=== PATIENT | male | born 1980 | race African-American/Black ===

== ENCOUNTER 2024-09-04 15:11 | Emergency (ER) | payer OTHER, SELFPAY ==
[2024-09-04] VITALS (8 sets, daily range): BP systolic 106–139; BP diastolic 54–85; PULSE 87–138; RESP 14–38; TEMP 36.6; O2SAT 94–100
--- NOTE | ~2024-09-04 | XR_ITS ---
EXAMINATION: XR chest 2V Exam Date/Time: 09/04/2024 17:25 CDT HISTORY: cough, sob Comparison: None. RESULT: Lines, tubes, and devices: None. Lungs and pleura: Low volumes with crowding in the lateral view. Mild biapical pleural scarring. Str eaky and linear bibasilar opacities likely representing scar/atelectasis. Cardiomediastinal silhouette: Unremarkable. Other: No acute osseous or upper abdominal finding. IMPRESSION: No acute cardiopulmonary process. Reviewed, dictated and finalized at location K.
--- NOTE | 2024-09-04 15:34 | ECG_ITS ---
Test Date: 2024-09-04 15:41:55 Measurements Intervals [place] Rate: 104 P: 27 AK: 120 QRS: 39 QRSD: 94 T: 12 QT: 342 QTc: 451 Interpretive Statements SINUS TACHYCARDIA NONSPECIFIC T-WAVE ABNORMALITY ABNORMAL RHYTHM ECG No previous ECG available for comparison Electronically Signed On 09-05-2024 15:08:43 CDT by Oswaldo Landers M.D.
--- NOTE | 2024-09-04 16:24 | ED.URI ---
HPI - URI/Sore Throat General Chief Complaint: Upper Respiratory Infection Stated Complaint: cough and cold sx Time Seen by Provider: 09/04/24 16:10 Source: patient Mode of arrival: ambulatory Limitations: no limitations History of Present Illness HPI Narrative: This is a 44 year old male that presents to the ER for cold symptoms. Ongoing over the last week. Reports worsening shortness of breath since yesterday. He has been on a steroid taper and Levaquin with little relief. Reports history of asthma. Reports chest pain, worse with coughing. Related Data Home Medications ?Medication ?Instructions ?Recorded ?Confirmed ?Last Taken ?Type albuterol sulfate 90 mcg/actuation inhalation 09/04/24 09/04/24 History aerosol inhaler mufxqhvkycmicmb-zjwyabkhkeojtlk-RR ml 09/04/24 09/04/24 History 2 mg-30 mg-10 mg/5 mL oral syrup fluconazole 200 mg tablet mg 09/04/24 09/04/24 History levofloxacin 750 mg tablet mg 09/04/24 09/04/24 History naproxen 500 mg tablet mg 09/04/24 Unknown History tezepelumab-ekko 210 mg/1.91 mL mg subcut 09/04/24 Unknown History (110 mg/mL) subcutaneous pen injector (Tezspire) Allergies Allergy/AdvReac Type Severity Reaction Status Date / Time No Known Allergies Allergy Verified 09/04/24 18:13 Review of Systems Review of Systems: CONSTITUTIONAL: Denies fever ENT: Reports rhinorrhea, congestion CARDIOVASCULAR: Reports chest pain RESPIRATORY: Reports cough and dyspnea. All systems reviewed & are unremarkable except as noted in HPI and below PMFSH Past Medical History Medical History (Updated 09/04/24 @ 18:54 by Porsche Crooks PA-C) History of asthma History of hypertension Social History Social History (Updated 09/04/24 @ 16:26 by Porsche Crooks PA-C) Smoking status: Former smoker Exam Narrative: GENERAL: Well-appearing, well-nourished, and in no acute distress. HEAD: Normocephalic, atraumatic. EYES: EOMI. ENT: Nares clear, no rhinorrhea or epistaxis. Mucous membranes moist. Oropharynx without tonsillar hypertrophy exudate or other lesions. NECK: Supple. No adenopathy or masses. CHEST: No respiratory distress. Bronchial lung sounds with coughing. No wheezes rales or rhonchi HEART: Regular rate and rhythm. No murmur heard. Normal peripheral pulses. EXTREMITIES: Normal range of motion. No edema. SKIN: Warm, dry, no rash. NEURO: No focal deficits. Alert and oriented x3. PSYCH: Normal mood and affect Course Course Emergency Course: patient updated on his workup and agrees with plan of care Vital Signs Vital signs: Vital Signs Temperature 98 F 09/04/24 15:21 Pulse Rate 114 H 09/04/24 15:21 Respiratory Rate 20 09/04/24 15:21 Blood Pressure 120/78 09/04/24 15:21 Pulse Oximetry 100 09/04/24 15:21 Oxygen Delivery Room Air 09/04/24 15:21 Temperature 98 F 09/04/24 15:21 Pulse Rate 100 09/04/24 18:50 Respiratory Rate 20 09/04/24 18:50 Blood Pressure 106/61 09/04/24 18:50 Pulse Oximetry 97 09/04/24 18:50 Oxygen Delivery Room Air 09/04/24 16:45 MDM - URI/Sore Throat MDM Narrative Medical decision making narrative: Patient presents the emergency department for cold symptoms ongoing over the last week. He is afebrile and nontoxic appearing. Tachycardic upon arrival, this normalized with IV fluids. Oxygen saturation is normal on room air. Cbc without concerning findings. Metabolic panel with mild elevation in creatinine 1.39. EKG without concerning changes in baseline troponin is negative. D-dimer is not elevated. Patient is COVID positive. Chest x-ray without acute cardiopulmonary abnormality. patient updated on his workup and agrees with plan of care. He is to follow up with PCP. He was given warnings to return to the ER Differential Diagnosis Differential diagnosis: Likely upper respiratory infection, sinusitis, viral infection, bronchitis, influenza and other (covid, pneumonia) Lab Data Attestation: I reviewed the patient's lab results. 09/04/24 16:47 09/04/24 16:47 Labs: Lab Results 09/04/24 Range/Units 16:47 WBC 4.7 (4.5-10.0) K/mm3 RBC 5.38 (4.6-6.20) M/mm3 Hgb 14.7 (14.0-18.0) g/dL Hct 44.5 (42.0-52.0) % MCV 82.7 (80-100) fl MCH 27.3 (26-34) pg MCHC 33.0 (32-36) g/dl RDW 14.6 H (11.5-14.5) % Plt Count 372 (150-375) k/mm3 MPV 8.4 (7.4-10.4) fl Immature Gran % (Auto) 0.2 (0-0.5) % Neut % (Auto) 79.5 H (45.5-73.1) % Lymph % (Auto) 16.5 L (18.3-44.2) % Sunflower % (Auto) 3.4 (2.6-8.5) % Eos % (Auto) 0.2 (0-4.4) % Baso % (Auto) 0.2 (0.2-1.2) % Lymph # (Auto) 0.78 L (0.9-3.2) K/mm3 Sunflower # (Auto) 0.2 (0.1-0.6) K/mm3 Eos # (Auto) 0.0 (0-0.3) K/mm3 Baso # (Auto) 0.0 (0.0-0.1) K/mm3 Abs Immat Gran (auto) 0.01 (0.00-0.031) K/mm3 Absolute Neuts (auto) 3.8 (1.3-6.7) K/mm3 Absolute Nucleated RBC 0.000 (0.0-0.012) K/mm3 Nucleated RBC % 0.0 (0.0-0.2) % PT 13.8 (11.1-14.7) Seconds INR 1.0 APTT 28.6 (22.3-36.8) Seconds D-Dimer < 0.27 (<0.48) ug/mL Sodium 141 (137-145) mmol/L Potassium 3.8 (3.4-5.0) mmol/L Chloride 104 (98-107) mmol/L Carbon Dioxide 22 (22-30) mmol/L Anion Gap 15 H (4-12) mmol/L BUN 16 (9-20) mg/dL Creatinine 1.39 H (0.7-1.3) mg/dL Estim Creat Clear Calc 76 ml/min Estimated GFR 55 L (59 - ) Glucose 134 H (65-110) mg/dL Calcium 9.6 (8.4-10.2) mg/dL Total Bilirubin 0.8 (0.2-1.3) mg/dL AST 47 (17-59) U/L ALT 43 (6-50) U/L Alkaline Phosphatase 59 (38-126) U/L Troponin I < 0.012 (0.000-0.034) ng/mL Total Protein 9.0 H (6.3-8.2) g/dL Albumin 5.0 (3.5-5.1) g/dL Influenza A (RT-PCR) Negative (Negative) Influenza B (RT-PCR) Negative (Negative) RSV (RT-PCR) Negative (Negative) SARS-CoV-2 RNA (RT-PCR) Positive A (Negative) Imaging Data Radiologist's impression: ITS Impressions Chest X-Ray 09/04/24 17:38 IMPRESSION: No acute cardiopulmonary process. ECG Data EKG #1: ECG completion date: 09/04/24 EKG Interpretation: tachycardia, sinus rhythm, no ST changes and normal QT Critical Care Time Critical Care Time Critical Care Time: No Discharge Plan Discharge Clinical Impression: COVID-19 Patient Disposition: Home, Self-Care Condition: Improved Instructions: COVID-19 (Coronavirus Disease 2019) (ED), How to Recover from COVID-19 at Home (ED) Additional Instructions: Return to the emergency department for worsening symptoms, or any other concerns Remain well-hydrated, get plenty of rest. Take Tylenol or Motrin gzkp-bwx-zawvccr for pain as needed. Flonase for nasal congestion. Zyrtec for runny nose. Lozenges or Chloraseptic spray for sore throat. Albuterol 2 puffs every 4-6 hours as needed for shortness of breath or wheezing. Take Prednisone 40mg daily for 4 more days. Stop your taper Follow up with primary care doctor Patient Language: Swedish Prescriptions: New prednisone 20 mg tablet 40 mg PO DAILY 4 Days Qty: 8 0RF Discontinued prednisone 10 mg tablet No Action fluconazole 200 mg tablet levofloxacin 750 mg tablet albuterol sulfate 90 mcg/actuation HFA aerosol inhaler INHALATION vuddufqnajjusic-atwlcnwqn-KT 2-30-10 mg/5 mL syrup naproxen 500 mg tablet Tezspire 210 mg/1.91 mL (110 mg/mL) pen injector SUBCUT Follow-up/Referrals: PHYSICIAN,INSURANCE ADJUSTOR [Non-Staff] - Stand Alone Forms: Work/School Release IP
--- OUTSIDE RECORDS SUMMARY | 2024-09-04 16:31 | XMS_ITS | Clinical Summary ---
Author Organization [facility] Address [address] [place] [address] Care Team Providers Care Reduction Furnace Operator Name Role Phone Jose M Carr DO Primary Care Provider [phone] Allergies No known active allergies Medications losartan-hydroC HLOROthiazide (Hyzaar) 50-12.5 MG tablet Take 1 tablet by mouth 1 (one) time each day. Active albuterol 108 (90 Base) MCG/ACT inhaler Inhale 2 puffs every 6 (six) hours if needed. Active cefdinir (Omnicef) 300 MG capsule Take 300 mg by mouth every 12 (twelve) hours. 4 Active amoxicillin (Amoxil) 500 MG tablet TAKE 1 TABLET BY MOUTH EVERY 12 HOURS FOR 10 DAYS 3 Active fluticasone (Flonase) 50 MCG/ACT nasal spray 3 Active HYDROcodone-bridger taminophen (Nutley) 5-325 MG tablet Take 1 tablet by mouth every 6 (six) hours if needed. 4 Active cefadroxil (Duricef) 500 MG capsule TAKE 1 CAPSULE BY MOUTH TWICE DAILY. START AFTER SURGERY 4 Active methocarbamol (Robaxin) 750 MG tablet TAKE 1 TABLET BY MOUTH TWICE DAILY NEEDED FOR MUSCLE SPASM FOR UP TO 7 DAYS 4 Active amoxicillin-cla vulanate (Augmentin) 875-125 MG tablet Take 1 tablet by mouth every 12 (twelve) hours. FOR 7 DAYS 4 Active naloxone (Narcan) 4 mg/0.1 mL nasal sprayIndication s:Acute pain Administer 1 spray (4 mg total) into affected nostril(s) if needed for opioid reversal or respiratory depression. May repeat every 2-3 minutes if needed, alternating nostrils, until medical assistance becomes available. 1 each 4 11/05/19 25 Active HYDROcodone-bridger taminophen (Nutley) 10-325 MG tablet TAKE 1 TABLET BY MOUTH EVERY 8 HOURS FOR NEEDED 4 Active Active Problems Problem Noted Date Diagnosed Date Tendinitis of left rotator cuff 12/03/2023 Cervical spondylosis 11/05/2023 Supraspinatus tendonitis, left 11/05/2023 Assessment & Plan (11/05/2023 2:14 PM CDT): Romero Casillas DO, Family Medicine PGY 3 resident accompanied me with the consultation of this patient visit. Physical therapy orders for outpatient rehabilitation prescribed (please remember to take the order to a physical therapy location of your choice). If no improvement may consider additional imaging. A home exercise program is encouraged. The following studies were reviewed and discussed during today's visit: Radiographs and MRI. Referral placed for further evaluation Dr Yobani Cuba, Orthopedic surgeon, [place] [place] [facility] Take acetaminophen (Tylenol) every 4-6 hours as needed for relief of pain, discomfort, or fever. Use Over The Counter (OTC) Ibuprofen or Naproxen as needed for pain relief, discomfort, or fever. Do not take more than recommended dosage in a 24 hour period as this can cause severe side effects including kidney damage. Take with food. Voltaren (Diclofenac) 1% OTC (Over the counter). Consider using an over the counter topical medication such as Salonpas/Icy Hot/BioFreeze. Patient verbalized understanding and agrees with plan of care. Infraspinatus tendonitis, left 11/05/2023 Superior labrum anterior-to- posterior (SLAP) tear of left shoulder 11/05/2023 Tear of left supraspinatus tendon 11/05/2023 Assessment & Plan (03/24/2024 9:18 AM CDT): Theresa Mijares MD, Family Medicine PGY 3 resident accompanied me with the consultation of this patient visit. Physical therapy orders for outpatient rehabilitation prescribed (please remember to take the order to a physical therapy location of your choice). If no improvement may consider additional imaging. A home exercise program is encouraged. Referral placed for further evaluation with follow up evaluation with Dr Taylor for narcotic pain medication, he has recently had steroid injection IM, recommend avoid corticosteroid injection today. Consider using an over the counter topical medication such as Salonpas/Icy Hot/BioFreeze. Patient verbalized understanding and agrees with plan of care. Tear of left infraspinatus tendon 11/05/2023 Osteoarthritis of left AC (acromioclavicular) suzanne int 11/05/2023 Arthritis of left shoulder region 11/05/2023 Subacromial bursitis of left shoulder joint 10/20 Acute pain of left shoulder 11/04/2023 Family History Relation Name Status Comments Father Alive Mother Social History Tobacco Use Types Packs/Day Years Used Date Smoking Tobacco: Former Cigarettes Smokeless Tobacco: Never Tobacco Cessation:Counseling Given: Not Answered Alcohol Use Standard Drinks/Week Comments Yes 0 (1 standard drink = 0.6 oz pur e alcohol) Socially Sex and Gender Information Value Date Recorded Sex Assigned at Male 04/25/2024 8:01 AM BUSINESS DIVISION CHAIR Legal Sex Male 9:15 AM BUSINESS DIVISION CHAIR Gender Identity Male 04/25/2024 8:01 AM BUSINESS DIVISION CHAIR Sexual Orientation Not on file Last Filed Vital Signs Vital Sign Reading Time Taken Comments Blood Pressure 128/87 05/23/2024 10:18 AM BUSINESS DIVISION CHAIR Pulse 86 05/23/2024 10:18 AM BUSINESS DIVISION CHAIR Temperature 36.4 C (97.5 F) 05/23/2024 10:18 AM BUSINESS DIVISION CHAIR Respiratory Rate - - Oxygen Saturation 100% 03/28/2024 1:37 PM CDT Inhaled Oxygen Concentration - - Weight 134 kg (295 lb 6.4 oz) 05/23/2024 10:18 A M BUSINESS DIVISION CHAIR Height 170.2 cm (5' 7 ) 03/28/2024 1:37 PM CDT Body Mass Index 46.27 03/28/2024 1:37 PM CDT Plan of Treatment Health Maintenance Due Date Last Done Comments CT Colonography 1979 Colonoscopy 1979 Colorectal Cancer Screening 1980 FIT-DNA 1979 FOBT 1979 Sigmoidoscopy 1979 MMR Vaccines (1 of 1 - Stand trinh series) 01/06/1980 Preventive Visit 1997 Hepatitis A Vaccines (1 of 2 - Risk 2-dose series) 1998 Hepatitis B Vaccines (2 of 3 - 19+ 3-dose series) 12/01/2023 11/03/2023 Influenza Vaccine (#1) 2024 COVID-19 Vaccine (1 - 2023-2 5 season) 2024 Zoster Vaccines (1 of 2) 2029 DTaP,Tdap,and Td Vaccines (2 - Td or Tdap) 11/02/2033 11/03/2023 Pneumococcal Vaccine: Pediat rics (0 to 5 Years) and At-Risk Patients (6 to 49 Years) Completed 11/03/2023 HIB Vaccines Aged Out No longer eligi ble based on patient's age to complete this topic HPV Vaccines Aged Out No longer eligi ble based on patient's age to complete this topic IPV Vaccines Aged Out No longer eligi ble based on patient's age to complete this topic Meningococcal Vaccine Aged Out No mehdi chula eligible based on patient's age to complete this topic Rotavirus Vaccines Aged Out No longer eligible based on patient's age to complete this topic Insurance [employer] EXCHANGE Care Teams Reduction Furnace Operator Relationship Specialty [place] [address] [place] [address] PCP - General 11/04/23
--- OUTSIDE RECORDS SUMMARY | 2024-09-04 16:31 | XMS_ITS | Referral Summary ---
Author Organization [facility] Address [address] [place] [address] Care Team Providers Care Blanket Winder Helper Name Role Phone Jose M Carr DO Primary Care Provider [phone] Allergies No known active allergies Medications losartan-hydroC [...] MCG/ACT nasal spray 3 Active HYDROcodone-bridger taminophen (Nazareth) 5-325 MG tablet Take 1 tablet by [...] each 4 11/05/19 25 Active HYDROcodone-bridger taminophen (Nazareth) 10-325 MG tablet TAKE 1 TABLET BY [...] Dr Yobani Cuba, Orthopedic surgeon, [place], [place] [facility] Take acetaminophen (Tylenol) every 4-6 hours [...] 10/20 Acute pain of left shoulder 11/04/2023 Social History Tobacco Use Types Packs/Day Years Used Date Smoking Tobacco: Former Cigarettes Smokeless Tobacco: Never Tobacco Cessation:Counseling Given: Not Answered Alcohol Use Standard Drinks/Week Comments Yes 0 (1 standard drink = 0.6 oz pur e alcohol) Socially Sex and Gender Information Value Date Recorded Sex Assigned at Male 04/25/2024 8:01 AM TANGIBLE PERSONAL PROPERTY APPRAISER Legal Sex Male 9:15 AM TANGIBLE PERSONAL PROPERTY APPRAISER Gender Identity Male 04/25/2024 8:01 AM TANGIBLE PERSONAL PROPERTY APPRAISER Sexual Orientation Not on file Last Filed Vital Signs Vital Sign Reading Time Taken Comments Blood Pressure 128/87 05/23/2024 10:18 AM TANGIBLE PERSONAL PROPERTY APPRAISER Pulse 86 05/23/2024 10:18 AM TANGIBLE PERSONAL PROPERTY APPRAISER Temperature 36.4 C (97.5 F) 05/23/2024 10:18 AM TANGIBLE PERSONAL PROPERTY APPRAISER Respiratory Rate - - Oxygen Saturation 100% 03/28/2024 1:37 PM CDT Inhaled Oxygen Concentration - - Weight 134 kg (295 lb 6.4 oz) 05/23/2024 10:18 A M TANGIBLE PERSONAL PROPERTY APPRAISER Height 170.2 cm (5' 7 ) 03/28/2024 1:37 PM CDT Body Mass Index 46.27 03/28/2024 1:37 PM CDT Plan of Treatment Not on file Insurance [employer] EXCHANGE Care Teams Blanket Winder Helper Relationship Specialty [place] [address] [place] [address] PCP - General 11/04/23
--- OUTSIDE RECORDS SUMMARY | 2024-09-04 16:31 | XMS_ITS | Encounter Summary ---
Author Organization [facility] Address [address] [place] [address] Care Team Providers Care Glass Cylinder Flanger Name Role Phone Yobani Daniel MD Primary Care Provider [phone] Reason for Visit * Reason Onset Date Comments Advice Only 11/17/2023 pt would like a call states he sneezed and stiches came out. Wants to know if that was normal. pls call TY Encounter Details Date Type Department Care Team (Late st Contact Info) Description 11/17/2023 Telephone [facility] [address] [place] [address] [place] [address] [address] Social History Tobacco Use Types Packs/Day Years Used Date Smoking Tobacco: Former Cigarettes Q uit: 2020 Smokeless Tobacco: Never Alcohol Use Standard Drinks/Week Comments Yes 0 (1 standard drink = 0.6 oz pur e alcohol) social PHQ-2 Answer Date Recorded PHQ-9 Total Score 0 10/21/2023 Hunger Vital Sign Answer Date Recorded Within the past 12 months, y ou worried that your food would run out before you got the money to buy more. Never true 10/20/19 24 Within the past 12 months, t he food you bought just didn't last and you didn't have money to get more. Never true 10/20/2023 Utilities Answer Date Recorded In the past 12 months has e electric, gas, oil, or water company threatened to shut off services in your home? No 10/20/2023 Living Situation Answer Date Recorded What is your living situation today? I have a [facility] [place] place to live 10/20/[address] you li ve. Do you have problems with any of the following? CHOOSE ALL THAT APPLY None of the above 10/20/2023 Personal Safety Answer Date Recorded SDOH Safety Total Score 4 10/20/19 24 Transportation Needs Answer Date Record ed In the past 12 months, has l ack of reliable transportation kept you from medical appointments, meetings, work or from getting things needed for daily living? No 10/20/2023 Sex and Gender Information Value Date Recorded Sex Assigned at Not on file Legal Sex Male 12:14 PM TRANSITION LEAD Gender Identity Not on file Sexual Orientation Not on file documented as of this encounter Miscellaneous Notes * Telephone Encounter - Payton Fang - 11/17/2023 1:34 PM CDT pt would like a call states he sneezed and stiches came out. Wants to know if that was normal. pls call TY documented in this encounter Plan of Treatment Not on file documented as of this encounter Visit Diagnoses Not on filedocumented in this encounter Care Teams Glass Cylinder Flanger Relationship Specialty Start Date End Date Yobani Daniel MD [address] [place] [address] PCP - General 08/19/23 documented as of this encounter
--- OUTSIDE RECORDS SUMMARY | 2024-09-04 16:31 | XMS_ITS ---
Author Organization [facility] Address [address] [place] [address] Care Team Providers Care Beverage Distiller Name Role Phone Jose M Carr Primary Care Provider UnavailAndriy Pennington Unavailable [phone] REASON FOR VISIT Patient seen in clinic for cc of pain in heels. Medications Medication SIG (Take, Route, Frequency, Duration) Notes Start Date End Date Status HYDROcodone-Acetaminophen 10-325 MG 1 tablet as needed Orally every 8 hours for 20 days As needed G90.523 04/28/2024 05/18/2024 Active Naprosyn 500 MG 1 tablet with food o r milk as needed Orally every 12 hrs for 30 days G90.523 08/20/2023 06/27/2024 Active Terbinafine HCl 250 MG 1 tablet Orally O nce a day for 30 days G90.523 08/20/2023 07/27/2024 Active Vital Signs Weight-kg 127.91 kg 04/27/2024 Weight 282 lbs 04/27/2024 Heart Rate 73 /min 04/27/2024 Blood pressure systolic 158 mm Hg 04/27/20 24 Blood pressure diastolic 97 mm Hg 024 Encounters Encounter Location Date Provider Diagnosis [facility] [address] [place] [address] 04/27/2024 Andriy Singh Pain in unspecified lower leg M79.669 ; Type 2 diabetes mellitus with diabetic polyneuropathy E11.42 ; Plantar fascial fibromatosis M72.2 and Tinea unguium B35.1 Assessments Encounter Date Diagnosis (ICD Code) Assessment Notes Treatment Notes Treatment Clinical Notes Section Notes 04/27/2024 Pain in unspecified lower leg (ICD-10 - M79.669) 04/27/2024 Type 2 diabetes mellitus with diabetic polyneuropathy (ICD-10 - E11.42) 04/27/2024 Plantar fascial fibromatosis (ICD-10 - M72.2) 04/27/2024 Tinea unguium (ICD-10 - B35.1) Plan Of Treatment Medication Medication Name Sig Start Date Stop Date Notes HYDROcodone-Acetaminophen 10-325 MG 1 tablet as needed Orally every 8 hours for 20 days 04/28/2024 05/18/2024 G90.523 Naprosyn 500 MG 1 tablet with food o r milk as needed Orally every 12 hrs for 30 days 08/20/2023 06/27/2024 G90.523 Terbinafine HCl 250 MG 1 tablet Orally O nce a day for 30 days 08/20/2023 07/27/2024 G90.523 Next Appt Details Follow Up: 3 Months, Reason: Progress Notes * Andriy COLLADO EDOB:1980 (44 yo M)Acc No.[id number]:04/27/2024 Progress Notes Patient: Andriy DAWSON Provider: Ramirez Singh DPM :1980 A ge:44 Y S ex:Male Date:04/27/2024 Address:[facility] [address], [place] [address] Pcp:Jose M Carr Subjective: * Chief Complaints: * P atient seen in clinic for cc of pain in heels. * HPI: P lantar fasciitis: Plantar fasciitis was diagnosed w eeks ago when patient presented with heel pain on the left foot / heel on the right foot / heel . Severity of the symptoms is s evere considered 9 out of 10 . Symptoms are present on the p roximal heel proximal plantar aspect of foot . * Medical History: * Surgical History: * Hospitalization/Major Diagno stic Procedure: * Medications: T akingHYDROcodone-Acetaminophen 10-325 MG Tablet 1 tablet as needed Orally every 8 hours As needed, stop date 05/16/2024, Notes to Pharmacist: g90.523Naprosyn 500 MG Tablet 1 tablet with food or milk as needed Orally every 12 hrs , stop date 06/25/2024, Notes to Pharmacist: g90.523Terbinafine HCl 250 MG Tablet 1 tablet Orally Once a day , stop date 07/25/2024, Notes to Pharmacist: g90.523Taking HYDROcodone-Acetaminophen 10-325 MG Tablet 1 tablet as needed Orally every 8 hours As needed, stop date 05/16/2024, Notes to Pharmacist: g90.523Taking Naprosyn 500 MG Tablet 1 tablet with food or milk as needed Orally every 12 hrs , stop date 06/25/2024, Notes to Pharmacist: g90.523Taking Terbinafine HCl 250 MG Tablet 1 tablet Orally Once a day , stop date 07/25/2024, Notes to Pharmacist: g90.523 Objective: * Vitals: B P:158/97mm Hg, HR:73/min, Wt:282lbs, Wt-k.91 kg. Assessment: * Assessment: 1. P ain in unspecified lower leg - M79.669 2 . T ype 2 diabetes mellitus with diabetic polyneuropathy - E11.42 3 . P lantar fascial fibromatosis - M72.2? 4. T inea unguium - B35.1 Plan: * Treatment: * Procedure Codes: * Follow Up: 3 Months * Billing Information: * Visit Code: 62724 Office Visit, Est Pt., Level 2. * Procedure Codes: * SIE Sign off status: Completed true * Provider: Ramirez Singh DPM Date: 06/27/2023 Generated for Aileeni elizabeth/Vicki/eTransmitting on: 0 09/04/2024 04:31 PM CDT History and Physical Notes * HPI (History of Present Illness) Category Sub-Category Detail Notes Category Not es Plantar fasciitis Plantar fasciitis wa s diagnosed weeks ago when patient presented with heel pain on the left foot / heel on the right foot / heel Severity of the symptoms is severe consi dered 9 out of 10 Symptoms are present on the proximal antonette l proximal plantar aspect of foot
--- OUTSIDE RECORDS SUMMARY | 2024-09-04 16:32 | XMS_ITS | Clinical Summary ---
Author Organization [facility] Address [address] [place] [address] Care Team Providers Care Plant And Maintenance Technician Name Role Phone Yobani Daniel MD Primary Care Provider [phone] Allergies No known active allergies Medications budesonide-form oteroL (SYMBICORT) 160-4.5 mcg/actuation inhaler Inhale 2 puffs 2 (two) times a day. Active albuterol 90 mcg/actuation inhaler Inhale 2 puffs every 6 (six) hours as needed for wheezing. Active losartan-hydroc hlorothiazide (HYZAAR) 50-12.5 mg per tablet Take 1 tablet by mouth daily. Active ipratropium-alb uteroL (DUO-NEB) 0.5-2.5 mg/3 mL nebulizer USE 1 AMPULE IN NEBULIZER EVERY 6 HOURS NEEDED FOR WHEEZING 4 Active HYDROcodone-bridger taminophen (NORCO) 5-325 mg per tabletIndicatio ns:acute pain Take 1 tablet by mouth every 6 (six) hours as needed for moderate pain .acute pain. Start after surgery Max Daily Amount: 4 tablets 12 tablet 4 Active cefuroxime (CEFTIN) 500 MG tablet Take 1 tablet (500 mg total) by mouth 2 (two) times a day. Prescription already sent by ENT 4 Active Active Problems Problem Noted Date Diagnosed Date Chronic pansinusitis 09/10/2023 Nasal septal deviation 09/10/2023 Hypertrophy of inferior nasal turbinate 09/10/19 24 Nasal polyps 09/10/2023 Family History Medical History Relation Name Comments Diabetes Mother Hypertension Mother Relation Name Status Comments Mother Social History Tobacco Use Types Packs/Day Years Used Date Smoking Tobacco: Former Cigarettes Q uit: 2020 Smokeless Tobacco: Never Tobacco Cessation:Counseling Given: Not [...] Recorded In the past 12 months has th e electric, gas, oil, or water company threatened to shut off services in your home? No 10/20/2023 Living Situation Answer Date Recorded What is your living situation today? I [facility] place to live 10/20/[address] you li ve. Do you have problems with any of the following? CHOOSE ALL THAT APPLY None of the above 10/20/2023 Personal Safety Answer Date Recorded SDOH Safety Total Score 4 10/20/19 Transportation Needs Answer Date Record ed In the past 12 months, has l ack of reliable transportation kept you from medical appointments, meetings, work or from getting things needed for daily living? No 10/20/2023 Sex and Gender Information Value Date Recorded Sex Assigned at Not on file Legal Sex Male 12:14 PM GUEST SERVICES COORDINATOR Gender Identity Not on file Sexual Orientation Not on file Last Filed Vital Signs Vital Sign Reading Time Taken Comments Blood Pressure 136/89 04/25/2024 1:32 PM GUEST SERVICES COORDINATOR Pulse 72 04/25/2024 1:32 PM GUEST SERVICES COORDINATOR Temperature 36.4 C (97.5 F) 10/21/2023 3:49 PM CDT Respiratory Rate 22 10/21/2023 4:59 PM CDT Oxygen Saturation 94% 10/21/2023 3:49 PM CDT Inhaled Oxygen Concentration - - Weight 130 kg (286 lb) 04/25/2024 1:32 PM GUEST SERVICES COORDINATOR Height 170.2 cm (5' 7 ) 04/25/2024 1:32 PM GUEST SERVICES COORDINATOR Body Mass Index 44.79 04/25/2024 1:32 PM GUEST SERVICES COORDINATOR Plan of Treatment Health Maintenance Due Date Last Done Comments FLEXIBLE SIGMOIDOSCOPY 1980 FOBT 1980 STOOL DNA (COLOGUARD) 1979 HEPATITIS C SCREENING 1997 Pneumococcal Vaccine: Pediat rics (0 to 5 Years) and At-Risk Patients (6 to 49 Years) (1 of 2 - PCV) 1998 COLONOSCOPY SCREENING 01/06/2024 COLORECTAL CANCER SCREENING 01/06/2024 COVID-19 VACCINE (1 - 2023-2 5 season) 2024 INFLUENZA VACCINE (#1) 2024 MENINGOCOCCAL B SERIES VACCINE Aged Out No longer eligible based on patient's age to complete this topic Medical Devices Implanted Type Area Asset Protection Lead Device Identifier Shelf Expiration Date Model / Serial / Lot Implant Sinus Propel Mini 16x43.5x4.0mm Mometasone Furoate - [id number] Implanted:Qty : 1 on 10/20/2023 by Lima Cardoza MD at [facility] Otolaryngology Implants or Sets Left: Nose INTERSECT ENT 01/22/2024 [id number] / / [id number] Implant Sinus Propel Mini 16x43.5x4.0mm Mometasone Furoate - [id number] Implanted:Qty : 1 on 10/20/2023 by Lima Cardoza MD at [facility] Otolaryngology Implants or Sets Right: Nose INTERSECT ENT 01/22/2024 [id number] / / [id number] Implant Sinus Propel Contour 8x15.5x2.8mm Mometasone Furoate - [id number] Implanted:Qty : 1 on 10/20/2023 by Lima Cardoza MD at [facility] Surgical Implants; Expanders; Extenders; Surgical Wires Left: Nose INTERSECT ENT 10/09/2024 [id number] / / [id number] Implant Sinus Propel Contour 8x15.5x2.8mm Mometasone Furoate - [id number] Implanted:Qty : 1 on 10/20/2023 by Lima Cardoza MD at [facility] Surgical Implants; Expanders; Extenders; Surgical Wires Right: Nose INTERSECT ENT 09/18/2024 [id number] / / [id number] Insurance [facility] EXCHANGE [employer] NETWORK - OON Advance Directives For more information, please contact: [phone] * Full Code (Latest Code Status on File) Date Activated Date Inactivated Comments 10/20/2023 12:37 PM 10/21/2023 10:09 PM Question Answer Comments Code Status decision reached by: Patient Care Teams Plant And Maintenance Technician Relationship Specialty Start Date End Date Yobani Daniel MD [address] [place] [address] PCP - General 08/19/23
--- OUTSIDE RECORDS SUMMARY | 2024-09-04 16:32 | XMS_ITS | Clinical Summary ---
Author Organization [facility] Address [address] [place] [address] Care Team Providers Care Director Supply Name Role Phone Unavailable Primary Care Provider Unavailabl e Source Comments PLEASE NOTE, if this patient is a minor, it may be UNLAWFUL to discuss sensitive information that is contained in these records (such as FAMILY PLANNING, MENTAL HEALTH or SUBSTANCE ABUSE) with the minor patient's parent or other person without the patient's specific authorization.[facility] Allergies No known active allergies Medications condomsIndicati ons:Counseling on health promotion and disease prevention STD prevention 12 Each 0 4 Active Social History Tobacco Use Types Packs/Day Years Used Date Smoking Tobacco: Every Day Cigarettes Smokeless Tobacco: Never Sex and Gender Information Value Date Recorded Sex Assigned at Not on file Legal Sex Male 7:14 AM PDT Gender Identity Not on file Sexual Orientation Not on file Plan of Treatment Not on file
--- OUTSIDE RECORDS SUMMARY | 2024-09-04 16:32 | XMS_ITS | Patient Health Record ---
Author Organization [facility] Address [address] [place] [address] Care Team Providers Care Program Review Director Name Role Phone Carr Jose M Primary Care Provider UnavailAndriy Pennington Unavailable [phone] Reason For Referral No Information Medications Medication SIG (Take, Route, Fr equency, Duration) Notes Start Date End Date Status Naprosyn 500 MG 1 tablet with food o r milk as needed Orally every 12 hrs for 30 days E11.42 08/20/2023 09/25/2024 Active Problems Problem Type SNOMED Code ICD Code Onset Dates Problem Status W/U Status Risk Notes Problem Tinea unguium (552835196) Tinea unguium (B35.1) Active confirmed Problem Polyneuropathy due to type 2 diabetes mellitus (090556669) Type 2 diabetes mellitus with diabetic polyneuropathy (E11.42) Active confirmed Problem Hammer toe (838070176) Other hammer toe(s) (acquired), unspecified foot (M20.40) Active confirmed Problem Plantar fascial fibromatosis (20226785) Plantar fascial fibromatosis (M72.2) Active confirmed Problem Calcaneal spur (22595351) Calcaneal spur, unspecified foot (M77.30) Active confirmed Problem Pain in limb (67259789) Pain in unspecified lower leg (M79.669) Active confirmed Problem Abnormal gait (52858671) Other abnormalities of gait and mobility (R26.89) Active confirmed Vital Signs Heart Rate 108 /min 07/26/2024 Blood pressure diastolic 97 mm Hg 07/26/2024 Weight-kg 135.63 kg 07/26/2024 Blood pressure systolic 161 mm Hg 07/26/2024 Weight 299 lbs 07/26/2024 Encounters Encounter Location Date Provider Diagnosis [facility] [address] [place] [address] 01/22/2024 Andriy Singh [facility] [address] [place] [address] 01/25/2024 Andriy Singh Pain in unspecified lower leg M79.669 [facility] [address] [place] [address] 01/26/2024 Andriy Singh Pain in unspecified lower leg M79.669 [facility] [address] [place] [address] 01/27/2024 Andriy Singh Pain in unspecified lower leg M79.669 [facility] [address] [place] [address] 01/29/2024 Andriy Singh Pain in unspecified lower leg M79.669 [facility] [address] [place] [address] 04/26/2024 Andriy Singh Pain in unspecified lower leg M79.669 [facility] [address] [place] [address] 07/27/2024 Andriy Singh Pain in unspecified lower leg M79.669 [facility] [address] [place] [address] 01/20/2024 Andriy Singh Type 2 diabetes theron itus with diabetic polyneuropathy E11.42 ; Tinea unguium B35.1 ; Other hammer toe(s) (acquired), unspecified foot M20.40 and Pain in unspecified lower leg M79.669 [facility] [address] [place] [address] 04/27/2024 Andriy Singh Pain in unspecified lower leg M79.669 ; Type 2 diabetes mellitus with diabetic polyneuropathy E11.42 ; Plantar fascial fibromatosis M72.2 and Tinea unguium B35.1 [facility] [address] [place] [address] 07/26/2024 Andriy Singh Pain in unspecified lower leg M79.669 ; Tinea unguium B35.1 ; Type 2 diabetes mellitus with diabetic polyneuropathy E11.42 and Other hammer toe(s) (acquired), unspecified foot M20.40 Assessments Encounter Date Diagnosis (ICD Code) Assessment Notes Treatment Notes Treatment Clinical Notes Section Notes 01/20/2024 Tinea unguium (ICD-10 - B35.1) debridement of nails on feet 01/20/2024 Type 2 diabetes mellitus with diabetic polyneuropathy (ICD-10 - E11.42) 01/25/2024 Pain in unspecified lower leg (ICD-10 - M79.669) 01/26/2024 Pain in unspecified lower leg (ICD-10 - M79.669) 01/27/2024 Pain in unspecified lower leg (ICD-10 - M79.669) 01/29/2024 Pain in unspecified lower leg (ICD-10 - M79.669) 04/26/2024 Pain in unspecified lower leg (ICD-10 - M79.669) 04/27/2024 Pain in unspecified lower leg (ICD-10 - M79.669) 07/26/2024 Tinea unguium (ICD-10 - B35.1) debridement of nails on feet 07/26/2024 Pain in unspecified lower leg (ICD-10 - M79.669) 07/27/2024 Pain in unspecified lower leg (ICD-10 - M79.669) 04/27/2024 Type 2 diabetes mellitus with diabetic polyneuropathy (ICD-10 - E11.42) 07/26/2024 Type 2 diabetes mellitus with diabetic polyneuropathy (ICD-10 - E11.42) 01/20/2024 Other hammer toe(s) (acquired), unspecified foot (ICD-10 - M20.40) 01/20/2024 Pain in unspecified lower leg (ICD-10 - M79.669) 07/26/2024 Other hammer toe(s) (acquired), unspecified foot (ICD-10 - M20.40) 04/27/2024 Plantar fascial fibromatosis (ICD-10 - M72.2) 04/27/2024 Tinea unguium (ICD-10 - B35.1) Plan Of Treatment No Information Insurance Providers Payer Name Payer Address Payer Phone Subscriber Number Group Number Insured Name Patient Relationship to Insured Coverage Start Date Coverage End Date [facility] access hospitalO - Active [address] [facility] [place] [id number] Andriy Barajas Self - patient is the insured
--- OUTSIDE RECORDS SUMMARY | 2024-09-04 16:32 | XMS_ITS ---
Author Organization [facility] Address [address] [place] [address] Care Team Providers Care Cupola Operator Name Role Phone Jose M Carr Primary Care Provider UnavailAndriy Pennington Unavailable [phone] Medications Medication SIG (Take, Route, Frequency, Duration) Notes Start Date End Date Status Terbinafine HCl 250 MG 1 tablet Orally O nce a day for 30 days G90.523 08/20/2023 07/27/2024 Active HYDROcodone-Acetaminophen 10-325 MG 1 tablet as needed Orally every 8 hours for 20 days As needed E11.42 07/27/2024 08/16/2024 Active Naprosyn 500 MG 1 tablet with food o r milk as needed Orally every 12 hrs for 30 days E11.42 08/20/2023 09/25/2024 Active Encounters Encounter Location Date Provider Diagnosis [facility] [address] [place] [address] 07/27/2024 Andriy Singh Pain in unspecified lower leg M79.669 Assessments Encounter Date Diagnosis (ICD Code) Assessment Notes Treatment Notes Treatment Clinical Notes Section Notes 07/27/2024 Pain in unspecified lower leg (ICD-10 - M79.669) Plan Of Treatment Medication Medication Name Sig Start Date Stop Date Notes HYDROcodone-Acetaminophen 10-325 MG 1 tablet as needed Orally every 8 hours for 20 days 07/27/2024 08/16/2024 E11.42 Naprosyn 500 MG 1 tablet with food o r milk as needed Orally every 12 hrs for 30 days 08/20/2023 09/25/2024 E11.42 Progress Notes * Andriy BARAJAS EDOB:1980 (44 yo M)Acc No.[id number]:07/27/2024 Patient: Andriy DAWSON Provider: Ramirez Singh DPM :1980 A ge:44 Y S ex:Male Date:07/27/2024 Address:[address], [facility] Pcp:Jose M Carr Subjective: * Chief Complaints: * * Medical History: * Medications: T aking Terbinafine HCl 250 MG Tablet 1 tablet Orally Once a day , stop date 07/27/2024, Notes to Pharmacist: G90.523, Taking HYDROcodone-Acetaminophen 10- 325 MG Tablet 1 tablet as needed Orally every 8 hours As needed, stop date 08/15/2024, Notes to Pharmacist: E11.42, Taking Naprosyn 500 MG Tablet 1 tablet with food or milk as needed Orally every 12 hrs , stop date 09/24/2024, Notes to Pharmacist: E11.42 Objective: * Vitals: Assessment: * Assessment: 1. P ain in unspecified lower leg - M79.669 Plan: * Treatment: * Billing Information: * Visit Code: * Procedure Codes: * Electronic signature of Andriy Singh DPM on 09/04/2024 at 04:31 PM CDT Sign off status: Pending * Provider: Ramirez Singh DPM Date: 0 07/27/2024 Generated for Ayanna johnson/Vicki/Wilfredo on: 0 09/04/2024 04:31 PM CDT
--- OUTSIDE RECORDS SUMMARY | 2024-09-04 16:32 | XMS_ITS ---
Author Organization [facility] Address [address] [place] [address] Care Team Providers Care New Car Driver Name Role Phone Jose M Carr Primary Care Provider Andriy Worrell Unavailable [phone] REASON FOR VISIT 3 month f/u, diabetic patient seen in clinic for cc of painful toenails on feet. Medications Medication SIG (Take, Route, Frequency, Duration) Notes Start Date End Date Status Terbinafine HCl 250 MG 1 tablet Orally O nce a day for 30 days G90.523 08/20/2023 07/27/2024 Active HYDROcodone-Acetaminophen 10-325 MG 1 tablet as needed Orally every 8 hours for 20 days As needed E11.42 04/28/2024 08/15/2024 Active Naprosyn 500 MG 1 tablet with food o r milk as needed Orally every 12 hrs for 30 days E11.42 08/20/2023 09/24/2024 Active Vital Signs Blood pressure systolic 161 mm Hg 07/26/19 25 Blood pressure diastolic 97 mm Hg 025 Heart Rate 108 /min 07/26/2024 Weight 299 lbs 07/26/2024 Weight-kg 135.63 kg 07/26/2024 Encounters Encounter Location Date Provider Diagnosis [facility] [address] [place] [address] 07/26/2024 Andriy Singh Pain in unspecified lower leg M79.669 ; Tinea unguium B35.1 ; Type 2 diabetes mellitus with diabetic polyneuropathy E11.42 and Other hammer toe(s) (acquired), unspecified foot M20.40 Assessments Encounter Date Diagnosis (ICD Code) Assessment Notes Treatment Notes Treatment Clinical Notes Section Notes 07/26/2024 Pain in unspecified lower leg (ICD-10 - M79.669) 07/26/2024 Tinea unguium (ICD-10 - B35.1) debridement of nails on feet 07/26/2024 Type 2 diabetes mellitus with diabetic polyneuropathy (ICD-10 - E11.42) 07/26/2024 Other hammer toe(s) (acquired), unspecified foot (ICD-10 - M20.40) Plan Of Treatment Medication Medication Name Sig Start Date Stop Date Notes HYDROcodone-Acetaminophen 10-325 MG 1 tablet as needed Orally every 8 hours for 20 days 04/28/2024 08/15/2024 E11.42 Naprosyn 500 MG 1 tablet with food o r milk as needed Orally every 12 hrs for 30 days 08/20/2023 09/24/2024 E11.42 Treatment Notes Assessment Notes Tinea unguium debridement of nails on feet Next Appt Details Follow Up: 3 Months, Reason: Progress Notes * Andriy COLLADO EDOB:1980 (44 yo M)Acc No.[id number]:07/26/2024 Progress Notes Patient: Andriy DAWSON Provider: Ramirez Singh DPM :1980 A ge:44 Y S ex:Male Date:07/26/2024 Address:[facility] [address], [place] [id number] Pcp:Jose M Carr Subjective: * Chief Complaints: * 3 month f/uDiabetic patient seen in clinic for cc of painful toenails on feet. * HPI: O nychomycosis: The onychomycosis has been present for w eeks years . The onychomycosis is located on b oth _1-10___ toenail(s) both . Symptoms include n ail discoloration nail discoloration nail thickening . It is associated with d iabetes tinea pedis diabetes tinea pedis . It is treated with t erbinafine . Response to treatment has been f air fair . P eripheral neuropathy: The peripheral neuropathy has been present f or years and began insidiously . The neuropathy is located in t he legs the feet the toes a stocking-glove distribution . Symptoms include a burning sensation numbness pain tingling and muscle weakness . It is worsened with d iabetes . It is treated with n arcotic pain relievers nonsteroidal anti-inflammatory drugs (NSAIDs) gabapentin . Overall condition i s worsening . * Medical History: * Surgical History: * Hospitalization/Major Diagno stic Procedure: * Medications: T akingTerbinafine HCl 250 MG Tablet 1 tablet Orally Once a day , stop date 07/27/2024, Notes to Pharmacist: G90.523Taking Terbinafine HCl 250 MG Tablet 1 tablet Orally Once a day , stop date 07/27/2024, Notes to Pharmacist: G90.523 Objective: * Vitals: B P:161/97mm Hg, HR:108/min, Wt:299lbs, Wt-k.63 kg. * Examination: V ascular: Dorsalis pedis pulse: b ilaterall 1/4 . Posterior tibial pulse: b ilaterally . Capillary refill: b ilaterally less than 3 seconds . Temperature gradient: b ilaterally warm to warm . Edema: b ilateral leg ankle foot non-pitting localized .? Inspection: b ilateral leg ankle foot with telangiectasia with varicosities . Assessment: * Assessment: 1. T inea unguium - B35.1 (Primary) 2 . P ain in unspecified lower leg - M79.669 3 . T ype 2 diabetes mellitus with diabetic polyneuropathy - E11.42 ? 4 . O ther hammer toe(s) (acquired), unspecified foot - M20.40 Plan: * Treatment: 2. P ain in unspecified lower leg Refill HYDROcodone-Acetaminophen Tablet, 10-325 MG, 1 tablet as needed, Orally, every 8 hours As needed, 20 days, 60 Tablet, Refills 0, Notes to Pharmacist: E11.42; R efill Naprosyn Tablet, 500 MG, 1 tablet with food or milk as needed, Orally, every 12 hrs, 30 days, 60 Tablet, Refills 1, Notes to Pharmacist: E11.42. * Procedure Codes: 1 1721 DEBRIDE NAIL, 6 OR MORE * Follow Up: 3 Months * Billing Information: * Visit Code: 42209 Office Visit, Est Pt., Level 3. * Procedure Codes: 17687 DEBRIDE NAIL, 6 OR MORE. * EPOINT DESIGNER DEVELOPER Sign off status: Completed true * Provider: Ramirez Singh DPM Date: 0 07/26/2024 Generated for Ayanna johnson/Vicki/Wilfredo on: 0 09/04/2024 04:31 PM CDT History and Physical Notes * HPI (History of Present Illness) Category Sub-Category Detail Notes Category Not es Onychomycosis The onychomycosis has been present for w eeks years The onychomycosis is located on both _1- 10___ toenail(s) both Symptoms include nail discoloration n ail discoloration nail thickening It is associated with diabetes tinea ped is diabetes tinea pedis It is treated with terbinafine Response to treatment has been fair fair Peripheral neuropathy The peripheral ochoa ropathy has been present for years and began insidiously The neuropathy is located in the legs th e feet the toes a stocking-glove distribution Symptoms include a burning sensation numbness pain tingling and muscle weakness It is worsened with diabetes It is treated with narcotic pain reliev ers nonsteroidal anti-inflammatory drugs (NSAIDs) gabapentin Overall condition is worsening Examination Category Sub-Category Detail Notes Category Not es Vascular Dorsalis pedis pulse: bilaterall 1/4 Edema: bilateral leg ankle foot non-pitting localized Capillary refill: bilaterally less gustabo n 3 seconds Temperature gradient: bilaterally warm t o warm Posterior tibial pulse: bilaterally Inspection: bilateral leg ankle foot with telangiectasia with varicosities
[2024-09-04] MEDS: IPRATROPIUM 0.5 MG/ALBUTEROL SULFATE 2.5 MG AMPUL.NEB 3 ML INHALATION (16:34)
[2024-09-04] MEDS: ACETAMINOPHEN 500 MG TABLET 1000 MG PO (16:43)
[2024-09-04] MEDS: methylPREDNISolone SOD SUCC 125 MG VIAL IV PUSH (16:44)
[2024-09-04] MEDS: SODIUM CHLORIDE 0.9% IV 500 ML 999 ML IV CONT (16:44)
[2024-09-04 16:54] LABS: Basophils Percent Auto 0.2 % (0.2-1.2); Eosinophils Percent Auto 0.2 % (0-4.4); Hematocrit 44.5 % (42.0-52.0); Hemoglobin 14.7 g/dL (14.0-18.0); Immature Granulocyte Absolute 0.01 K/mm3 (0.00-0.031); Immature Granulocyte Percent A 0.2 % (0-0.5); Lymphocytes Absolute Auto 0.78 K/mm3 (0.9-3.2); Lymphocytes Percent Auto 16.5 % (18.3-44.2); Mean Corpuscular Hemoglobin 27.3 pg (26-34); Mean Corpuscular Volume 82.7 fl (80-100); Mean Platelet Volume 8.4 fl (7.4-10.4); Monocytes Absolute Auto 0.2 K/mm3 (0.1-0.6); Monocytes Percent Auto 3.4 % (2.6-8.5); Neutrophils Absolute Auto 3.8 K/mm3 (1.3-6.7); Neutrophils Percent Auto 79.5 % (45.5-73.1); Platelet Count Result 372 k/mm3 (150-375); Red Blood Count 5.38 M/mm3 (4.6-6.20); Red Cell Distribution Width 14.6 % (11.5-14.5); White Blood Count 4.7 K/mm3 (4.5-10.0)
[2024-09-04 17:03] LABS: Alanine Aminotransferase 43 U/L (6-50); Alkaline Phosphatase 59 U/L (38-126); Anion Gap 15 mmol/L (4-12); Aspartate Amino Transferase 47 U/L (17-59); Bilirubin,Total 0.8 mg/dL (0.2-1.3); Blood Urea Nitrogen 16 mg/dL (9-20); Calcium 9.6 mg/dL (8.4-10.2); Carbon Dioxide 22 mmol/L (22-30); Chloride 104 mmol/L (98-107); Estimated CRCL calculation 76 ml/min; Estimated Glomerular Filt Rate 55; Glucose 134 mg/dL (65-110); Potassium 3.8 mmol/L (3.4-5.0); Sodium 141 mmol/L (137-145)
[2024-09-04 17:11] LABS: Prothrombin Time 13.8 Seconds (11.1-14.7)
[2024-09-04 17:12] LABS: Partial Thromboplastin Time 28.6 Seconds (22.3-36.8)
[2024-09-04 17:14] LABS: Troponin I < 0.012 ng/mL (0.000-0.034)
[2024-09-04 17:27] LABS: D Dimer < 0.27 ug/mL (<0.48)
[2024-09-04 17:32] LABS: Influenza A QL RT-PCR Negative (Negative); Influenza B QL RT-PCR Negative (Negative); RSV RNA, RT-PCR Negative (Negative); SARS-CoV-2 RNA PCR Positive (Negative)
== END 2024-09-04 19:13 | disposition home or self-care (01) ==
PROVIDERS: Emergency Provider Physician Assistant
DX: U07.1 COVID-19 (principal); I10 Essential (primary) hypertension; J45.909 Unspecified asthma, uncomplicated; Z87.891 Personal history of nicotine dependence
CPT/HCPCS: 36415; 71046; 80053; 84484; 85025; 85380; 85610; 85730; 87637; 93005; 94640; 96361; 96374; 99284; A9270; J2919; J7040

== ENCOUNTER 2024-09-09 16:49 | Emergency (ER) | payer OTHER, SELFPAY ==
--- NOTE | ~2024-09-09 | CT_ITS ---
EXAMINATION: CTA chest PE protocol DATE: 09/09/2024 21:23 CDT INDICATION: Shortness of breath and chest pain TECHNIQUE: Computed tomographic angiography (CTA) of the chest was performed with 100 mL Omnipaque-35 0 intravenous contrast. The dose-length product was 1056.94 mGy-cm. Maximum intensity projection 3D-r econstructions of the aorta and other arteries were constructed by the technologist on a separate wor kstation. COMPARISON: None. FINDINGS/OBSERVATIONS: PULMONARY ARTERIES: No filling defect is identified within the main or proximal pulmonary artery. The main pulmonary artery is not enlarged. THORACIC AORTA: No aneurysmal dilatation or dissection is present. The great vessels are intact LUNGS: Panlobular emphysematous disease is identified. Right basilar peribronchial thickening with mucous plugging. Subpleural cyst formation is detected bi laterally. Cylindrical bronchiectasis is noted bilaterally. MEDIASTINUM: No morphologically suspicious or pathologically enlarged lymph nodes are identified with in the mediastinum or bilateral axilla. BONES OF THE CHEST: No acute fracture. No significant degenerative disease. No lytic or blastic lesions. HEART: The heart is of normal size, without pericardial effusion. IMPRESSION: No pulmonary embolus. No thoracic aortic dissection. Panlobular emphysematous disease with right basilar peribronchial thickening and mucous plugging. Cyl indrical bronchiectasis is also noted. Reviewed, dictated and finalized at location A. IMPRESSION: No pulmonary embolus. No thoracic aortic dissection. Panlobular emphysematous disease with right basilar peribronchial thickening an d mucous plugging. Cylindrical bronchiectasis is also noted.
--- NOTE | ~2024-09-09 | XR_ITS ---
CHEST RADIOGRAPH CLINICAL HISTORY: dyspnea, chest pain . COMPARISON: 09/04/2024 TECHNIQUE: Single portable view of the chest. FINDINGS The cardiomediastinal silhouette is unremarkable. Significant peribronchial thickening, an interval change from previous examination. The lungs are otherwise clear. IMPRESSION: Significant peribronchial thickening, without focal infiltrate or effusion. Reviewed, dictated and finalized at location A.
--- OUTSIDE RECORDS SUMMARY | 2024-09-09 16:52 | XMS_ITS | Encounter Summary ---
Author Organization [facility] Address [address] [facility] [place] [address] Care Team Providers Care Political Worker Name Role Phone Jovanni Knapp MD Primary Care Provider Jose M Carr DO Primary Care Provider + Jovanni Pearson MD Primary Care Provider Niko Barone MD Primary Care Provider Encounter Details Date Type Department Care Team (Late st Contact Info) Description 10/29/2022 Legacy Scanned Document Encounter [facility] - Conversion [address] [place] [address] Social History Tobacco Use Types Packs/Day Years Used Date Smoking Tobacco: Never Assessed Sex and Gender Information Value Date Recorded Sex Assigned at Male 11/26/2023 2:38 PM CDT Legal Sex Male 7:25 AM CDT Gender Identity Male 09/12/2023 7:25 AM CDT Sexual Orientation Not on file documented as of this encounter Plan of Treatment Not on file documented as of this encounter Visit Diagnoses Not on filedocumented in this encounter Care Teams Political Worker Relationship Specialty [place] [address] [facility] [address] [place] [address] PCP - General 07/18/22 11/25/23 [place] [address] [place] [address] PCP - General 11/26/23 12/20/23 [place] [address] [place] [address] PCP - General 12/21/23 04/28/24 [place] [address] [place] [address] PCP - General Family Medicine 04/29/24 documented as of this encounter
--- OUTSIDE RECORDS SUMMARY | 2024-09-09 16:52 | XMS_ITS | Encounter Summary ---
Author Organization [facility] Address [address] [place] [address] Care Team Providers Care Supervisor Film Processing Name Role Phone Jovanni Knapp MD Primary Care Provider Jose M Carr DO Primary Care Provider + Jovanni Pearson MD Primary Care Provider [phone] Niko Barone MD Primary Care Provider Encounter Details Date Type Department Care Team (Late st Contact Info) Description 10/29/2022 Legacy Scanned Document Encounter [facility] - Conversion [address] [place] [address] Social History Tobacco Use Types [...] on filedocumented in this encounter Care Teams Supervisor Film Processing Relationship Specialty Start [place] [address] [facility] [address] [place] [address] PCP - General 07/18/22 11/25/23 [place] [address] [place] [address] PCP - General 11/26/23 12/20/23 [place] [address] [place] [address] PCP - General 12/21/23 04/28/24 [place] [address] [place] [address] PCP - General Family Medicine 04/29/24 documented as of this encounter
--- OUTSIDE RECORDS SUMMARY | 2024-09-09 16:53 | XMS_ITS | Encounter Summary ---
Author Organization [facility] Address [address] [facility] [place] [address] Care Team Providers Care Licensed Home Inspector Name Role Phone Yobani Daniel MD Primary Care Provider [phone] Reason for Visit * Reason Onset Date Comments Advice Only 11/17/2023 pt would like a call states he sneezed and stiches came out. Wants to know if that was normal. 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
--- OUTSIDE RECORDS SUMMARY | 2024-09-09 16:53 | XMS_ITS | Encounter Summary ---
Author Organization [facility] Address [address] [place] [address] Care Team Providers Care Rn Post Partum Name Role Phone Jovanni Pearson MD Primary Care Provider [phone] Niko Barone MD Primary Care Provider [phone] Reason for Visit * Reason Onset Date Comments Med Refill 03/17/2024 Patient is reque sting a nurse call him . He stated that the Dr prescribed him a medication for his foot but he is unaware of the name he is also requesting his blood pressure medication . Please follow up Encounter Details Date Type Department Care Team (Late st Contact Info) Description 03/17/2024 Refill [facility] [place] [address] [place] [address] [place] [address] [place] [address] Social History Tobacco Use Types Packs/Day Years Used Date Smoking Tobacco: Former Sex and Gender Information Value Date Recorded Sex Assigned at Male 11/26/2023 2:38 PM CDT Legal Sex Male 7:25 AM CDT Gender Identity Male 09/12/2023 7:25 AM CDT Sexual Orientation Not on file documented as of this encounter Miscellaneous Notes * Telephone Encounter - Hayley Marte - 03/17/2024 11:29 AM CDT Patient is requesting a nurse call him . He stated that the Dr prescribed him a medication for his foot but he is unaware of the name he is also requesting his blood pressure medication . Please follow up documented in this encounter Plan of Treatment Not on file documented as of this encounter Visit Diagnoses Not on filedocumented in this encounter Care Teams Rn Post Partum Relationship Specialty [place] [address] [place] [address] PCP - General 12/21/23 04/28/24 [place] [address] [place] [address] PCP - General Family Medicine 04/29/24 documented as of this encounter
--- OUTSIDE RECORDS SUMMARY | 2024-09-09 16:53 | XMS_ITS | Referral Summary ---
Author Organization [facility] Address [address] [place] [address] Care Team Providers Care Scout Sniper Name Role Phone Jose M Carr DO Primary Care Provider [phone] Allergies No known active allergies Medications losartan-hydroC [...] MCG/ACT nasal spray 3 Active HYDROcodone-bridger taminophen ([place]) 5-325 MG tablet Take 1 tablet by [...] each 4 11/05/19 25 Active HYDROcodone-bridger taminophen ([place]) 10-325 MG tablet TAKE 1 TABLET BY [...] Sex Assigned at Male 04/25/2024 8:01 AM RECORDS AND TAPE RECORDINGS ENGINEER Legal Sex Male 9:15 AM RECORDS AND TAPE RECORDINGS ENGINEER Gender Identity Male 04/25/2024 8:01 AM RECORDS AND TAPE RECORDINGS ENGINEER Sexual Orientation Not on file Last Filed Vital Signs Vital Sign Reading Time Taken Comments Blood Pressure 128/87 05/23/2024 10:18 AM RECORDS AND TAPE RECORDINGS ENGINEER Pulse 86 05/23/2024 10:18 AM RECORDS AND TAPE RECORDINGS ENGINEER Temperature 36.4 C (97.5 F) 05/23/2024 10:18 AM RECORDS AND TAPE RECORDINGS ENGINEER Respiratory Rate - - Oxygen Saturation 100% 03/28/2024 1:37 PM CDT Inhaled Oxygen Concentration - - Weight 134 kg (295 lb 6.4 oz) 05/23/2024 10:18 A M RECORDS AND TAPE RECORDINGS ENGINEER Height 170.2 cm (5' 7 ) 03/28/2024 1:37 PM CDT Body Mass Index 46.27 03/28/2024 1:37 PM CDT Plan of Treatment Not on file Insurance [employer] EXCH[employer] Care Teams Scout Sniper Relationship Specialty [place] [address] [place] [address] PCP - General 11/04/23
--- OUTSIDE RECORDS SUMMARY | 2024-09-09 16:53 | XMS_ITS | Encounter Summary ---
Author Organization [facility] Address [address] [facility] [place] [address] Care Team Providers Care Aircraft Designer Name Role Phone Jovanni Pearson MD Primary Care Provider [phone] Niko Barone MD Primary Care Provider [phone] Reason for Visit * Reason Comments Med Change Request Encounter Details Date Type Department Care Team (Late st Contact Info) Description 03/28/2024 [facility] [place] [address] [place] [address] [place] [address] [place] [address] Nontraumatic incomplete tear of left rotator cuff Social History Tobacco Use Types Packs/Day Years Used Date Smoking Tobacco: Former Smokeless Tobacco: Never Alcohol Use Standard Drinks/Week Comments Not Currently 0 (1 standard drink = 0.6 oz pur e alcohol) B1300 Health Literacy Answer Date Recor ded How often do you need to hav e someone help you when you read instructions, pamphlets, or other written material from your doctor or pharmacy? Patient declines to respond 03/22/2024 [facility] Utilities Answer Date Recorded In the past 12 months has th e [employer], gas, oil, or water company threatened to shut off services in your home? Patient declined 03/22/2024 Social Connection and Isolation Panel [NHANES] A nswer Date Recorded In a typical week, how many times do you talk on the phone with family, friends, or neighbors? Twice a week 03/22/2024 How often do you get togethe r with friends or relatives? Twice a week 03/22/2024 How often do you attend advent or christianity serv ices? Patient declined 03/22/2024 Do you belong to any clubs o r organizations such as advent groups, unions, fraternal or athletic groups, or school groups? No 03/22/2024 How often do you attend meet ings of the clubs or organizations you belong to? Patient declined 03/22/2024 Are you , , di vorced, , never , or living with a partner? Patient declined 03/22/2024 AUDIT-C Answer Date Recorded Q1: How often do you have a drink containing alc ohol? Patient declined 03/22/2024 Q2: How many drinks containi ng alcohol do you have on a typical day when you are drinking? Patient declined 03/22/2024 Q3: How often do you have si x or more drinks on one occasion? Patient declined 03/22/2024 Overall Financial Resource Strain (CARDIA) Answe r Date Recorded How hard is it for you to pa y for the very basics like food, housing, medical care, and heating? Patient declined 03/22/2024 PHQ-2 Answer Date Recorded Patient Health Questionnaire-2 Score 1 03/22/2024 [facility] - Occupational Stress Questionnaire Answer Date Recorded Do you feel stress - tense, restless, nervous, or anxious, or unable to sleep at night because your mind is troubled all the time - these days? To some extent 03/22/2024 Exercise Vital Sign Answer Date Recorde d On average, how many days pe r week do you engage in moderate to strenuous exercise (like a brisk walk)? 7 days 03/22/2024 On average, how many minutes do you engage in exercise at this level? 30 min 03/22/2024 Hunger Vital Sign Answer Date Recorded Within the past 12 months, y ou worried that your food would run out before you got the money to buy more. Patient declined Within the past 12 months, t he food you bought just didn't last and you didn't have money to get more. Patient declined 06/2023 PRAP[facility] - Transportation Answer Date Re corded In the past 12 months, has l ack of transportation kept you from medical appointments or from getting medications? Patient declined 03/22/2024 In the past 12 months, has l ack of transportation kept you from meetings, work, or from getting things needed for daily living? Patient declined 03/22/2024 Housing Stability Vital Sign Answer Kodi e Recorded In the last 12 months, was t here a time when you were not able to pay the mortgage or rent on time? Patient declined 03/22/20 Number of Times Moved in the Last Year Not on fi le 03/22/2024 At any time in the past 12 m [facility], were you homeless or living in a detention (including now)? Patient declined 03/22/2024 Sex and Gender Information Value Date Recorded Sex Assigned at Male 11/26/2023 2:38 PM CDT Legal Sex Male 7:25 AM CDT Gender Identity Male 09/12/2023 7:25 AM CDT Sexual Orientation Not on file documented as of this encounter Miscellaneous Notes * Telephone Encounter - Yobani Campbell LVN - 03/29/2024 8:30 AM CDT Duplicate E-Prescribing Status: Receipt confirmed by pharmacy (03/23/2024 4:27 PM CDT) documented in this encounter Plan of Treatment Not on file documented as of this encounter Visit Diagnoses Diagnosis Nontraumatic incomplete tear of left rotator cuff documented in this encounter Care Teams Aircraft Designer Relationship Specialty [place] [address] [place] [address] PCP - General 12/21/23 04/28/24 [place] [address] [place] [address] PCP - General Family Medicine 04/29/24 documented as of this encounter
--- OUTSIDE RECORDS SUMMARY | 2024-09-09 16:53 | XMS_ITS | Patient Health Record ---
Author Organization [facility] Address [address] [place] [address] Care Team Providers Care Head Sawyer Automatic Name Role Phone Carr Jose M Primary Care Provider UnavailAndriy Pennington Unavailable [phone] Reason For Referral No Information Medications Medication SIG (Take, Route, Fr equency, Duration) Notes Start Date End Date Status Naprosyn 500 MG 1 tablet with food o r milk as needed Orally every 12 hrs for 30 days E11.42 08/20/2023 09/25/2024 Active Problems Problem Type SNOMED Code ICD Code Onset Dates Problem Status W/U Status Risk Notes Problem Tinea unguium (722720294) Tinea unguium (B35.1) Active confirmed Problem Polyneuropathy due to type 2 diabetes mellitus (808529596) Type 2 diabetes mellitus with diabetic polyneuropathy (E11.42) Active confirmed Problem Hammer toe (442587428) Other hammer toe(s) (acquired), unspecified foot (M20.40) Active confirmed Problem Plantar fascial fibromatosis (82554902) Plantar fascial fibromatosis (M72.2) Active confirmed Problem Calcaneal spur (08667572) Calcaneal spur, unspecified foot (M77.30) Active confirmed Problem Pain in limb (57230718) Pain in unspecified lower leg (M79.669) Active confirmed Problem Abnormal gait (56462933) Other abnormalities of gait and mobility (R26.89) Active confirmed Vital Signs Heart Rate 108 /min 07/26/2024 Blood pressure diastolic 97 mm Hg 07/26/2024 Weight-kg 135.63 kg 07/26/2024 Blood pressure systolic 161 mm Hg 07/26/2024 Weight 299 lbs 07/26/2024 Encounters Encounter Location Date Provider Diagnosis [facility] [address] [place] [address] 01/22/2024 Andriy Singh [facility] [address] [place] [address] 01/25/2024 Andriy Singh Pain in unspecified lower leg M79.669 [facility] [address] [place] [address] 01/26/2024 Andriy Singh Pain in unspecified lower leg M79.669 [facility] [address] [place] [address] 01/27/2024 Andriy Singh Pain in unspecified lower leg M79.669 [facility] [address] [place] [address] 01/29/2024 Andriy Singh Pain in unspecified lower leg M79.669 [facility] [address] [place] [address] 04/26/2024 Andriy Singh Pain in unspecified lower leg M79.669 [facility] [address] [place] [address] 07/27/2024 Andriy Singh Pain in unspecified lower leg M79.669 [facility] [address] [place] [address] 01/20/2024 Andriy Singh Type 2 diabetes theron itus with diabetic polyneuropathy E11.42 ; Tinea unguium B35.1 ; Other hammer toe(s) (acquired), unspecified foot M20.40 and Pain in unspecified lower leg M79.669 [facility] [address] [place] [address] 04/27/2024 Andriy Singh Pain in unspecified lower leg M79.669 ; Type 2 diabetes mellitus with diabetic polyneuropathy E11.42 ; Plantar fascial fibromatosis M72.2 and Tinea unguium B35.1 [facility] [address] [place] [address] 07/26/2024 Andriy Singh Pain in unspecified lower [...] Insured Coverage Start Date [facility]age End Date [facility] [address] [place] [id number] Andriy Barajas Self - patient is the insured
--- OUTSIDE RECORDS SUMMARY | 2024-09-09 16:53 | XMS_ITS | Clinical Summary ---
Author Organization [facility] Address [address] [place] [address] Care Team Providers Care Optical Lab Technician Name Role Phone Jose M Carr DO Primary Care Provider [phone] Allergies No known active allergies Medications losartan-hydroC [...] MCG/ACT nasal spray 3 Active HYDROcodone-bridger taminophen ([place]) 5-325 MG tablet Take 1 tablet by [...] each 4 11/05/19 25 Active HYDROcodone-bridger taminophen ([place]) 10-325 MG tablet TAKE 1 TABLET BY [...] Dr Yobani Cuba, Orthopedic surgeon, [place], [place] Physicians Take acetaminophen (Tylenol) every 4-6 hours [...] Sex Assigned at Male 04/25/2024 8:01 AM SENIOR CIVIL ENGINEER Legal Sex Male 9:15 AM SENIOR CIVIL ENGINEER Gender Identity Male 04/25/2024 8:01 AM SENIOR CIVIL ENGINEER Sexual Orientation Not on file Last Filed Vital Signs Vital Sign Reading Time Taken Comments Blood Pressure 128/87 05/23/2024 10:18 AM SENIOR CIVIL ENGINEER Pulse 86 05/23/2024 10:18 AM SENIOR CIVIL ENGINEER Temperature 36.4 C (97.5 F) 05/23/2024 10:18 AM SENIOR CIVIL ENGINEER Respiratory Rate - - Oxygen Saturation 100% 03/28/2024 1:37 PM CDT Inhaled Oxygen Concentration - - Weight 134 kg (295 lb 6.4 oz) 05/23/2024 10:18 A M SENIOR CIVIL ENGINEER Height 170.2 cm (5' 7 ) [...] patient's age to complete this topic Insurance [employer] EXCH[employer] Care Teams Optical Lab Technician Relationship Specialty [place] [address] [place] [address] PCP - General 11/04/23
--- OUTSIDE RECORDS SUMMARY | 2024-09-09 16:53 | XMS_ITS ---
Author Organization [facility] Address [address] [place] [address] Care Team Providers Care Inspector Handbag Frames Name Role Phone Jose M Carr Primary Care Provider Andriy Worrell Unavailable [phone] REASON FOR VISIT 3 month f/u, diabetic [...] 07/26/2024 Encounters Encounter Location Date Provider Diagnosis [facility] [address] [place] [address] 07/26/2024 Andriy Singh Pain in unspecified lower [...] * Andriy COLLADO EDOB:1980 (44 yo M)Acc No.[id number]:07/26/2024 Progress Notes Patient: Andriy DAWSON Provider: Ramirez Singh DPM :1980 A ge:44 Y S ex:Male Date:07/26/2024 Address:[facility] [address], [place] [id number] Pcp:Jose M Carr Subjective: * Chief Complaints: [...] Months * Billing Information: * Visit Code: 24750 Office Visit, Est Pt., Level 3. * Procedure Codes: 54780 DEBRIDE NAIL, 6 OR MORE. * ICATION ARCHITECT MANAGER Sign off status: Completed true * Provider: Ramirez Singh DPM Date: 0 07/26/2024 Generated for Ayanna johnson/Vicki/Wilfredo on: 0 09/09/2024 04:52 PM CDT History and Physical Notes * [...]
--- OUTSIDE RECORDS SUMMARY | 2024-09-09 16:53 | XMS_ITS | Clinical Summary ---
Author Organization [facility] Address [address] [place] [address] Care Team Providers Care Soda Column Operator Name Role Phone Unavailable Primary Care Provider [...]
--- OUTSIDE RECORDS SUMMARY | 2024-09-09 16:53 | XMS_ITS | Encounter Summary ---
Author Organization [facility] Address [address] [facility] [place] [address] Care Team Providers Care Landscape Photographer Name Role Phone Jovanni Pearson MD Primary Care Provider [phone] Niko Barone MD Primary Care Provider [phone] Reason for Visit * Reason Comments Med Change Request Encounter Details Date Type Department Care Team (Late st Contact Info) Description 03/24/2024 [facility] [place] [address] [place] [address] [place] [address] [place] [address] Nontraumatic incomplete tear of left [...] or pharmacy? Patient declines to respond 03/22/2024 [facility] Utilities Answer Date Recorded In the past 12 months has e [employer], gas, oil, or water company threatened to [...] week 03/22/2024 How often do you attend shinto or rastafarian serv ices? Patient declined 03/22/2024 Do you belong to any clubs o r organizations such as shinto groups, unions, fraternal or athletic groups, or [...] Recorded Patient Health Questionnaire-2 Score 1 03/22/2024 [facility] - Occupational Stress Questionnaire Answer Date Recorded [...] any time in the past 12 m [facility], were you homeless or living in a fpc (including now)? Patient declined 03/22/2024 Sex and Gender Information Value Date Recorded Sex Assigned at Male 11/26/2023 2:38 PM CDT Legal Sex Male 7:25 AM CDT Gender Identity Male 09/12/2023 7:25 AM CDT Sexual Orientation Not on file documented as of this encounter Miscellaneous Notes * Telephone Encounter - Niko Barone DO - 03/28/2024 10:22 AM CDT Not covered by insurance. documented in this encounter Plan of Treatment Not on file documented as of this encounter Visit Diagnoses Diagnosis Nontraumatic incomplete tear of left rotator cuff documented in this encounter Care Teams Landscape Photographer Relationship Specialty [place] [address] [place] [address] PCP - General 12/21/23 04/28/24 [place] [address] [place] [address] PCP - General Family Medicine 04/29/24 documented as of this encounter
--- OUTSIDE RECORDS SUMMARY | 2024-09-09 16:53 | XMS_ITS ---
Author Organization [facility] Address [address] [place] [address] Care Team Providers Care Honey Processor Name Role Phone Jose M Carr Primary Care Provider UnavailAndriy Pennington Unavailable [phone] Medications Medication SIG (Take, Route, Frequency, Duration) [...] Active Encounters Encounter Location Date Provider Diagnosis [facility] [address] [place] [address] 07/27/2024 Andriy Singh Pain in unspecified lower [...] * Andriy BARAJAS EDOB:1980 (44 yo M)Acc No.[id number]:07/27/2024 Patient: Andriy DAWSON Provider: Ramirez Singh DPM :1980 A ge:44 Y S ex:Male Date:07/27/2024 Address:[address], [facility] Pcp:Jose M Carr Subjective: * Chief Complaints: [...] Electronic signature of Andriy Singh DPM on 09/09/2024 at 04:53 PM CDT Sign off status: Pending * Provider: Ramirez Singh DPM Date: 0 07/27/2024 Generated for Ayanna johnson/Vicki/Wilfredo on: 0 09/09/2024 04:53 PM CDT
--- OUTSIDE RECORDS SUMMARY | 2024-09-09 16:53 | XMS_ITS | Clinical Summary ---
Author Organization [facility] Address [address] [place] [address] Care Team Providers Care Breakfast Cook Name Role Phone Yobani Daniel MD Primary Care Provider [phone] Allergies No known active allergies Medications budesonide-form [...] living situation today? I have a [facility] place to live 10/20/2023 Think about the [...] on file Legal Sex Male 12:14 PM PRENATAL NURSE Gender Identity Not on file Sexual Orientation Not on file Last Filed Vital Signs Vital Sign Reading Time Taken Comments Blood Pressure 136/89 04/25/2024 1:32 PM PRENATAL NURSE Pulse 72 04/25/2024 1:32 PM PRENATAL NURSE Temperature 36.4 C (97.5 F) 10/21/2023 3:49 PM CDT Respiratory Rate 22 10/21/2023 4:59 PM CDT Oxygen Saturation 94% 10/21/2023 3:49 PM CDT Inhaled Oxygen Concentration - - Weight 130 kg (286 lb) 04/25/2024 1:32 PM PRENATAL NURSE Height 170.2 cm (5' 7 ) 04/25/2024 1:32 PM PRENATAL NURSE Body Mass Index 44.79 04/25/2024 1:32 PM PRENATAL NURSE Plan of Treatment Health Maintenance Due Date [...] this topic Medical Devices Implanted Type Area Varitype Operator Device Identifier Shelf Expiration Date Model / Serial / Lot Implant Sinus Propel Mini 16x43.5x4.0mm Mometasone Furoate - [id number] Implanted:Qty : 1 on 10/20/2023 by Lima Cardoza MD at [facility] Otolaryngology Implants or Sets Left: Nose INTERSECT ENT 01/22/2024 [id number] / / [id number] Implant Sinus Propel Mini 16x43.5x4.0mm Mometasone Furoate - [id number] Implanted:Qty : 1 on 10/20/2023 by Lima Cardoza MD at [facility] Otolaryngology Implants or Sets Right: Nose INTERSECT ENT 01/22/2024 [id number] / / [id number] Implant Sinus Propel Contour 8x15.5x2.8mm Mometasone Furoate - [id number] Implanted:Qty : 1 on 10/20/2023 by Lima Cardoza MD at [facility] Surgical Implants; Expanders; Extenders; Surgical Wires Left: Nose INTERSECT ENT 10/09/2024 [id number] / / [id number] Implant Sinus Propel Contour 8x15.5x2.8mm Mometasone Furoate - [id number] Implanted:Qty : 1 on 10/20/2023 by Lima Cardoza MD at [facility] Surgical Implants; Expanders; Extenders; Surgical Wires Right: Nose INTERSECT ENT 09/18/2024 [id number] / / [id number] Insurance [facility] EXCHANGE [employer] - [employer] Advance Directives For more information, please contact: [phone] * Full Code (Latest Code Status on File) Date Activated Date Inactivated Comments 10/20/2023 12:37 PM 10/21/2023 10:09 PM Question Answer Comments Code Status decision reached by: Patient Care Teams Breakfast Cook Relationship Specialty Start Date End Date Yobani Daniel MD [address] [place] [address] PCP - General 08/19/23
--- OUTSIDE RECORDS SUMMARY | 2024-09-09 16:53 | XMS_ITS | Clinical Summary ---
Author Organization [facility] Address 0 [facility] [place] [address] Care Team Providers Care Pharmacy Student Name Role Phone Niko Barone MD Primary Care Provider [phone] Allergies No known active allergies Medications EPINEPHrine (Epipen) 0.3 MG/0.3ML injection syringe INJECT 0.3MG/0.3ML BELOW THE SKIN NEEDED DIRECTED 4 Active Breztri Aerosphere 160-9-4.8 MCG/ACT aerosol 4 Active predniSONE (Deltasone) 10 MG tablet TAKE 4 TABLETS BY MOUTH ONCE DAILY FOR 4 DAYS THEN 3 ONCE DAILY FOR 4 DAYS THEN 2 ONCE DAILY FOR 4 DAYS THEN 1 ONCE DAILY FOR 4 DAYS AND THEN DISCONTINUE 4 Active lidocaine (Lidoderm) 5 % patchIndications :Nontraumatic incomplete tear of left rotator cuff Apply 1 patch over 12 hours topically 1 time each day. Remove & discard patch within 12 hours or as directed by . 30 patch 2 4 Active Mobic 15 MG tabletIndication s:Nontraumatic incomplete tear of left rotator cuff Take 1 tablet by mouth 1 time each day. 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 COPD without exacerbation 12/01/2023 ED (erectile dysfunction) 12/01/2023 Hypertension 12/01/2023 Left rotator cuff tear 12/01/2023 Morbid obesity 12/01/2023 Need for hepatitis B vaccination 12/01/2023 Need for Tdap vaccination 12/01/2023 Onychomycosis 12/01/2023 BELEM (obstructive sleep apnea) 12/01/2023 Pulmonary nodule 12/01/2023 Upper airway cough syndrome 12/01/2023 Resolved Problems Problem Noted Date Diagnosed Date Resolved Date Hypertrophy, nasal, turbinate 12/01/2023 12/01/2023 Encounters Date Type Department Care Team Description 08/05/2024 Telephone [facility] [address] [phone] Niko Barone MD 07/30/2024 Refill [facility] [address] [phone] Niko Barone MD Primary hypertension 06/27/2024 Refill [facility] [address] [phone] Niko Barone MD Primary hypertension from Last 3 Months Immunizations Immunization Administration Dates Next Due Hep B, adult 11/03/2023 Pneumococcal Conjugate PCV 20 11/03/2023 Tdap 11/03/2023 Social History Tobacco Use Types Packs/Day Years Used Date Smoking Tobacco: Former Smokeless Tobacco: Never Tobacco Cessation:Counseling Given: Not Answered Alcohol Use Standard Drinks/Week Comments Not Currently 0 (1 standard drink = 0.6 oz pur e alcohol) B1300 Health Literacy Answer Date Recor ded How often do you need to hav e someone help you when you read instructions, pamphlets, or other written material from your doctor or pharmacy? Patient declines to respond 03/22/2024 [facility] Utilities Answer Date Recorded In the past 12 months has e [employer], gas, oil, or water [employer] threatened to shut off services in your home? Patient declined 03/22/2024 Social Connection and Isolation Panel [NHANES] A nswer Date Recorded In a typical week, how many times do you talk on the phone with family, friends, or neighbors? Twice a week 03/22/2024 How often do you get togethe r with friends or relatives? Twice a week 03/22/2024 How often do you attend synagogue or confucianism serv ices? Patient declined 03/22/2024 Do you belong to any clubs o r organizations such as synagogue groups, unions, fraternal or athletic groups, or [...] Recorded Patient Health Questionnaire-2 Score 1 03/22/2024 [facility] - Occupational Stress Questionnaire Answer Date Recorded [...] or rent on time? Patient declined 03/22/20 24 Number of Times Moved in the Last Year Not on fi le 03/22/2024 At any time in the past 12 m [facility], were you homeless or living in a correction (including now)? Patient declined 03/22/2024 Sex and Gender Information Value Date Recorded Sex Assigned at Male 11/26/2023 2:38 PM CDT Legal Sex Male 7:25 AM CDT Gender Identity Male 09/12/2023 7:25 AM CDT Sexual Orientation Not on file Last Filed Vital Signs Vital Sign Reading Time Taken Comments Blood Pressure 130/85 03/23/2024 2:30 PM CDT Pulse 69 03/23/2024 2:30 PM CDT Temperature 36.7 C (98 F) 03/23/2024 2:30 PM CDT Respiratory Rate 18 11/03/2023 10:33 AM CDT Oxygen Saturation 98% 03/23/2024 2:30 PM CDT Inhaled Oxygen Concentration - - Weight 130 kg (286 lb) 03/23/2024 2:30 PM CDT Height 167.6 cm (5' 6 ) 03/23/2024 2:30 PM CDT Body Mass Index 46.16 03/23/2024 2:30 PM CDT Plan of Treatment Health Maintenance Due Date Last Done Comments CT Colonography 1979 Colonoscopy 1979 Colorectal Cancer Screening 1979 FIT-DNA 1979 FIT 1979 FOBT 1979 Sigmoidoscopy 1979 Hepatitis A Vaccines (1 of 2 - Risk 2-dose series) 1998 Hepatitis B Vaccines (2 of 3 - 19+ 3-dose series) 12/01/2023 11/03/2023 Annual Physical 12/11/2023 12/10/2022 Influenza Vaccine (#1) 2024 Lipid Panel 01/03/2029 01/04/2024, 12/10/2022 DTaP/Tdap/Td Vaccines (2 - T d or Tdap) 11/02/2033 11/03/2023 Pneumococcal Vaccine: Pediatrics (0 to 5 Years) and At-Risk Patients (6 to 64 Years) Completed 11/03/2023 HIB Vaccines Aged Out [...] on patient's age to complete this topic Procedures Procedure Name Priority Date/Time Associated Diagnosis Comments LIPID PANEL WITH LDL/HDL RATIO (AMB) Routine 12/10/2022 12:26 PM CDT from Last 3 Months or Most Recently Relevant to Health Maintenance Results * (ABNORMAL) Lipid panel with LDL/HDL ratio (12/10/2022 12:26 PM CDT) [facility] Triglycerides 89 <150 mg/dL [facility] RESULT CONVERSION Comment: Lab test performed by: [facility] [address] [place] [phone] Ricci Shin LDL (Calculated) 158(H) mg/dL [facility] RESULT CONVERSION Comment: Reference range: <100 Desirable range <100 mg/dL for primary prevention; <70 mg/dL for patients with CHD or diabetic patients with > or = 2 CHD risk factors. LDL-C is now calculated using the Kofi-Bhavesh calculation, which is a validated novel method providing better accuracy than the Friedewald equation in the estimation of LDL-C. Kofi MURPHY et al. DEMETRIO. 2013;310(19): 6301-6872 (http://education.myDrugCosts/faq/YBE981) Lab test performed by: [facility] [address] [place] [address] Ricci Shin Cholesterol 221(H) <200 mg/dL [facility] RESULT CONVERSION Comment: Lab test performed by: [facility] [address] [place] [phone] Ricci Latifge Chol/HDL Ratio 5.0(H) <5.0 (CALC) [facility] RESULT CONVERSION Comment: Lab test performed by: [facility] [address] [place] [address] Ricci Garciaridge HDL 44 > OR = 40 mg/dL [facility] RESULT CONVERSION Comment: Lab test performed by: [facility] [address] [place] [address] Ricci Garciaridge Non HDL Chol 177(H) <130 mg/dL [facility] RESULT CONVERSION Comment: For patients with diabetes plus 1 major ASCVD risk factor, treating to a non-HDL-C goal of <100 mg/dL (LDL-C of <70 mg/dL) is considered a therapeutic option. FASTING:YES FASTING: YES Lab test performed by: [facility] [address] [place] [address] Ricci Garciaridge Blood 12/10/2022 12:2 6 PM CDT Jose M Carr DO LAB BLOOD ORDERABLES Fin al Result [facility] RESULT CONVERSION from Last 3 Months or Most Recently Relevant to Health Maintenance Insurance [facility] Care Teams Pharmacy Student Relationship Specialty [place] [address] [place] [address] PCP - General Family Medicine 04/29/24
--- OUTSIDE RECORDS SUMMARY | 2024-09-09 16:53 | XMS_ITS ---
Author Organization [facility] Address [address] [place] [address] Care Team Providers Care Galley Boy Name Role Phone Jose M Carr Primary Care Provider UnavailAndriy Pennington Unavailable [phone] REASON FOR VISIT Patient seen in clinic [...] 024 Encounters Encounter Location Date Provider Diagnosis [facility] [address] [place] [phone] 04/27/2024 Andriy Singh Pain in unspecified lower [...] * Andriy COLLADO EDOB:1980 (44 yo M)Acc No.[id number]:04/27/2024 Progress Notes Patient: Andriy DAWSON Provider: Ramirez Singh DPM :1980 A ge:44 Y S ex:Male Date:04/27/2024 Address:[facility] [address], [place] [address] Pcp:Jose M Carr Subjective: * Chief Complaints: [...] Months * Billing Information: * Visit Code: 62946 Office Visit, Est Pt., Level 2. * Procedure Codes: * PREVENTION ENGINEER Sign off status: Completed true * Provider: Ramirez Singh DPM Date: 1 06/27/2023 Generated for Aileeni elizabeth/Vicki/eTransmitting on: 0 09/09/2024 04:52 PM CDT History [...]
[2024-09-09 16:54] VITALS: BP 141/75; PULSE 130; RESP 18; TEMP 36.8; O2SAT 95
--- NOTE | 2024-09-09 17:00 | ECG_ITS ---
Test Date: 2024-09-09 18:41:28 Measurements Intervals [place] Rate: 121 P: 28 IN: 112 QRS: 53 QRSD: 95 T: 34 QT: 324 QTc: 460 Interpretive Statements SINUS TACHYCARDIA NONSPECIFIC T-WAVE ABNORMALITY ABNORMAL RHYTHM ECG Compared to ECG 09/04/2024 15:41:55 NO SIGNIFICANT CHANGES Electronically Signed On 09-10-2024 17:29:17 CDT by Saran Barnett M.D.
--- NOTE | 2024-09-09 17:01 | ED_ITS ---
HPI - SOB/Dyspnea General Chief Complaint: Shortness of Breath/Dyspnea <Lulu Pitts PA-C - Last Filed: 09/09/24 17:04> Stated Complaint: Continued SHOB, CP since Thursday, +Covid <Lulu Pitts PA-C - Last Filed: 09/09/24 17:04> Time Seen by Provider: 09/09/24 17:20 <Lulu Pitts PA-C - Last Filed: 09/09/24 17:04> Focused HPI: 44 y/o M with history of asthma presents emergency department for chest pain, shortness of breath and cough for the past 5 days. Patient was seen in our ED on 09/04/2024 diagnosis of COVID. He resents today for worsening symptoms chest pain, shortness of breath and cough. States the cough is mostly nonproductive but intermittently productive with mucus and streaks of blood. He is reporting diffuse pain throughout his chest and describes it as someone sitting on his chest. Pain is worse with coughing. Denies fevers, lower extremity edema, history of VTE. Patient states he has been using his nebulizer treatments without improvement. patient does not smoke. Denies history of COPD or CHF. GENERAL: Well-appearing, well-nourished, and in no acute distress. HEAD: Normocephalic, atraumatic. CHEST: Wheezing and rhonchi throughout all lung dominguez, increased work of breathing, tripoding EXT: no lower extremity edema HEART: Regular rate and rhythm.? NEURO: ?Alert and oriented x3. Patient screened in triage and initial orders placed.? ?Additional care and disposition to be based upon?diagnostic testing and treatment. <Lulu Pitts PA-C - Last Filed: 09/09/24 17:04> Source: patient <Madi Perez MD - Last Filed: 09/09/24 19:01> Mode of arrival: ambulatory <Madi Perez MD - Last Filed: 09/09/24 19:01> Limitations: no limitations <Madi Perez MD - Last Filed: 09/09/24 19:01> History of Present Illness HPI Narrative: 44-year-old hit the history of asthma presents to the ER with a complaint of shortness of breath and nonproductive cough for past few days. Patient states that he was seen on 316 was diagnosed with COVID. He states the cough is nonproductive. Denies any fever <Madi Perez MD - Last Filed: 09/09/24 19:01> MD elicited complaint: shortness of breath and cough <Madi Perez MD - Last Filed: 09/09/24 19:01> Pertinent past history: asthma <Madi Perez MD - Last Filed: 09/09/24 19:01> Onset (ago): day(s) (3) <Madi Perez MD - Last Filed: 09/09/24 19:01> Timing: constant <Madi Perez MD - Last Filed: 09/09/24 19:01> Severity: moderate <Madi Perez MD - Last Filed: 09/09/24 19:01> Exacerbating factors: nothing <Madi Perez MD - Last Filed: 09/09/24 19:01> Relieving factors: nothing <Madi Perez MD - Last Filed: 09/09/24 19:01> Known history of: asthma <Madi Perez MD - Last Filed: 09/09/24 19:01> Associated symptoms: denies other symptoms <Madi Perez MD - Last Filed: 09/09/24 19:01> Related Data Home Medications: Home Medications ?Medication ?Instructions ?Recorded ?Confirmed ?Last Taken ?Type albuterol sulfate 90 mcg/actuation inhalation 09/04/24 09/04/24 History aerosol inhaler glrdutkdhczkrnr-urasbkrbvdqtgrc-GQ ml 09/04/24 09/04/24 History 2 mg-30 mg-10 mg/5 mL oral syrup fluconazole 200 mg tablet mg 09/04/24 09/04/24 History levofloxacin 750 mg tablet mg 09/04/24 09/04/24 History naproxen 500 mg tablet mg 09/04/24 Unknown History tezepelumab-ekko 210 mg/1.91 mL mg subcut 09/04/24 Unknown History (110 mg/mL) subcutaneous pen injector (Tezspire) <Lulu Pitts PA-C - Last Filed: 09/09/24 17:04> Allergies/Adverse Reactions: Allergies Allergy/AdvReac Type Severity Reaction Status Date / Time No Known Allergies Allergy Verified 09/04/24 18:13 <Lulu Pitts PA-C - Last Filed: 09/09/24 17:04> Review of Systems 2 Review of Systems: All systems reviewed & are unremarkable except as noted in HPI and below <Madi Perez MD - Last Filed: 09/09/24 19:01> Constitutional: Constitutional: Reports no additional constitutional complaints <Madi Perez MD - Last Filed: 09/09/24 19:01> Eyes: Eyes: Reports no additional eye complaints <Madi Perez MD - Last Filed: 09/09/24 19:01> ENT: Reports system reviewed and no additional complaints, except as documented <Madi Perez MD - Last Filed: 09/09/24 19:01> Cardiovascular: Cardiovascular: Reports no additional cardiovascular complaints <Madi Perez MD - Last Filed: 09/09/24 19:01> Respiratory: Respiratory: Reports as per HPI <Madi Perez MD - Last Filed: 09/09/24 19:01> Gastrointestinal: Gastrointestinal: Reports no additional gastrointestinal complaints <Madi Perez MD - Last Filed: 09/09/24 19:01> Musculoskeletal: Musculoskeletal: Reports no additional musculoskeletal complaints <Madi Perez MD - Last Filed: 09/09/24 19:01> Neurologic: Reports system reviewed and no additional complaints, except as documented <Madi Perez MD - Last Filed: 09/09/24 19:01> [facility] Past Medical History Medical History: Medical History History of asthma History of hypertension <Lulu Pitts PA-C - Last Filed: 09/09/24 17:04> Social History Social History: Social History Smoking status: Former smoker <Lulu Pitts PA-C - Last Filed: 09/09/24 17:04> Exam 2 Narrative: GENERAL: Well-appearing, obese, and in no acute distress. HEAD: Normocephalic, atraumatic. EYES: PERRLA and EOMI. NECK: Supple. CHEST: Decreased air entry mild wheeze bilaterally HEART: Regular rate and rhythm. No murmur heard. Normal peripheral pulses. ABDOMEN: Soft, nontender, nondistended, normal active bowel sounds. EXTREMITIES: Normal range of motion. No edema. SKIN: Warm, dry, no rash. NEURO: No focal deficits. Alert and oriented x3. PSYCH: Normal mood and affect. <Madi Perez MD - Last Filed: 09/09/24 19:01> Course Course Emergency Course: Patient feeling better informed him about his lab work, chest x-ray findings. Advised to take steroids and continue to use the inhalers <Madi Perez MD - Last Filed: 09/09/24 19:01> Vital Signs Vital signs: Vital Signs Temperature 36.8 C 09/09/24 16:54 Pulse Rate 130 H 09/09/24 16:54 Respiratory Rate 18 09/09/24 16:54 Blood Pressure 141/75 H 09/09/24 16:54 Pulse Oximetry 95 09/09/24 16:54 Temperature 36.8 C 09/09/24 16:54 Pulse Rate 115 H 09/09/24 20:11 Respiratory Rate 24 H 09/09/24 20:11 Blood Pressure 132/77 09/09/24 20:11 Pulse Oximetry 95 09/09/24 20:11 Oxygen Delivery Room Air 09/09/24 18:58 <Lulu Pitts PA-C - Last Filed: 09/09/24 17:04> Vital Signs Temperature 36.8 C 09/09/24 16:54 Pulse Rate 130 H 09/09/24 16:54 Respiratory Rate 18 09/09/24 16:54 Blood Pressure 141/75 H 09/09/24 16:54 Pulse Oximetry 95 09/09/24 16:54 Temperature 36.8 C 09/09/24 16:54 Pulse Rate 115 H 09/09/24 20:11 Respiratory Rate 24 H 09/09/24 20:11 Blood Pressure 132/77 09/09/24 20:11 Pulse Oximetry 95 09/09/24 20:11 Oxygen Delivery Room Air 09/09/24 18:58 <Madi Perez MD - Last Filed: 09/09/24 19:01> MDM - SOB/Dyspnea Differential Diagnosis Differential diagnosis: Likely acute exacerbation of chronic obstructive airways disease, congestive heart failure, community acquired pneumonia and asthma with exacerbation <Madi Perez MD - Last Filed: 09/09/24 19:01> Medical Records Attestation: I reviewed the patient's medical records. <Madi Perez MD - Last Filed: 09/09/24 19:01> Lab Data Result diagrams: 09/09/24 18:30 09/09/24 18:30 <Lulu Pitts PA-C - Last Filed: 09/09/24 17:04> Labs: Lab Results 09/09/24 Range/Units 18:30 WBC 11.7 H (4.5-10.0) K/mm3 RBC 5.46 (4.6-6.20) M/mm3 Hgb 14.8 (14.0-18.0) g/dL Hct 45.1 (42.0-52.0) % MCV 82.6 (80-100) fl MCH 27.1 (26-34) pg MCHC 32.8 (32-36) g/dl RDW 14.6 H (11.5-14.5) % Plt Count 454 H (150-375) k/mm3 MPV 8.1 (7.4-10.4) fl Immature Gran % (Auto) 2.2 H (0-0.5) % Neut % (Auto) 77.9 H (45.5-73.1) % Lymph % (Auto) 14.6 L (18.3-44.2) % [facility] % (Auto) 5.0 (2.6-8.5) % Eos % (Auto) 0.0 (0-4.4) % Baso % (Auto) 0.3 (0.2-1.2) % Lymph # (Auto) 1.71 (0.9-3.2) K/mm3 [facility] # (Auto) 0.6 (0.1-0.6) K/mm3 Eos # (Auto) 0.0 (0-0.3) K/mm3 Baso # (Auto) 0.0 (0.0-0.1) K/mm3 Abs Immat Gran (auto) 0.26 H (0.00-0.031) K/mm3 Absolute Neuts (auto) 9.1 H (1.3-6.7) K/mm3 Absolute Nucleated RBC 0.020 H (0.0-0.012) K/mm3 Nucleated RBC % 0.2 (0.0-0.2) % PT 13.7 (11.1-14.7) Seconds INR 1.0 APTT 25.3 (22.3-36.8) Seconds Sodium 140 (137-145) mmol/L Potassium 4.2 (3.4-5.0) mmol/L Chloride 103 (98-107) mmol/L Carbon Dioxide 24 (22-30) mmol/L Anion Gap 13 H (4-12) mmol/L BUN 18 (9-20) mg/dL Creatinine 1.32 H (0.7-1.3) mg/dL Estim Creat Clear Calc Not Reportable Estimated GFR 59 (59 - ) Glucose 144 H (65-110) mg/dL Calcium 9.9 (8.4-10.2) mg/dL Magnesium 2.0 (1.6-2.3) mg/dL Total Bilirubin 0.5 (0.2-1.3) mg/dL AST 39 (17-59) U/L ALT 45 (6-50) U/L Alkaline Phosphatase 57 (38-126) U/L Troponin I < 0.012 (0.000-0.034) ng/mL NT-Pro-B Natriuret Pep < 20 (19.9-100) pg/mL Total Protein 8.0 (6.3-8.2) g/dL Albumin 4.7 (3.5-5.1) g/dL <Lulu Pitts PA-C - Last Filed: 09/09/24 17:04> Lab Results 09/09/24 Range/Units 18:30 WBC 11.7 H (4.5-10.0) K/mm3 RBC 5.46 (4.6-6.20) M/mm3 Hgb 14.8 (14.0-18.0) g/dL Hct 45.1 (42.0-52.0) % MCV 82.6 (80-100) fl MCH 27.1 (26-34) pg MCHC 32.8 (32-36) g/dl RDW 14.6 H (11.5-14.5) % Plt Count 454 H (150-375) k/mm3 MPV 8.1 (7.4-10.4) fl Immature Gran % (Auto) 2.2 H (0-0.5) % Neut % (Auto) 77.9 H (45.5-73.1) % Lymph % (Auto) 14.6 L (18.3-44.2) % [facility] % (Auto) 5.0 (2.6-8.5) % Eos % (Auto) 0.0 (0-4.4) % Baso % (Auto) 0.3 (0.2-1.2) % Lymph # (Auto) 1.71 (0.9-3.2) K/mm3 [facility] # (Auto) 0.6 (0.1-0.6) K/mm3 Eos # (Auto) 0.0 (0-0.3) K/mm3 Baso # (Auto) 0.0 (0.0-0.1) K/mm3 Abs Immat Gran (auto) 0.26 H (0.00-0.031) K/mm3 Absolute Neuts (auto) 9.1 H (1.3-6.7) K/mm3 Absolute Nucleated RBC 0.020 H (0.0-0.012) K/mm3 Nucleated RBC % 0.2 (0.0-0.2) % PT 13.7 (11.1-14.7) Seconds INR 1.0 APTT 25.3 (22.3-36.8) Seconds Sodium 140 (137-145) mmol/L Potassium 4.2 (3.4-5.0) mmol/L Chloride 103 (98-107) mmol/L Carbon Dioxide 24 (22-30) mmol/L Anion Gap 13 H (4-12) mmol/L BUN 18 (9-20) mg/dL Creatinine 1.32 H (0.7-1.3) mg/dL Estim Creat Clear Calc Not Reportable Estimated GFR 59 (59 - ) Glucose 144 H (65-110) mg/dL Calcium 9.9 (8.4-10.2) mg/dL Magnesium 2.0 (1.6-2.3) mg/dL Total Bilirubin 0.5 (0.2-1.3) mg/dL AST 39 (17-59) U/L ALT 45 (6-50) U/L Alkaline Phosphatase 57 (38-126) U/L Troponin I < 0.012 (0.000-0.034) ng/mL NT-Pro-B Natriuret Pep < 20 (19.9-100) pg/mL Total Protein 8.0 (6.3-8.2) g/dL Albumin 4.7 (3.5-5.1) g/dL <Madi Perez MD - Last Filed: 09/09/24 19:01> ABG Data ABG results: 09/09/24 17:23 Puncture Site Right radial ABG pH 7.437 ABG pCO2 36.6 ABG pO2 64.0 L ABG PO2/FiO2 Ratio 3.05 ABG HCO3 24.1 ABG O2 Saturation 93.2 L ABG O2 Content 20.0 ABG Base Excess 0.3 A-a Gradient 41.9 Oxyhemoglobin 91.9 Total Hemoglobin 15.5 O2 Delivery Device Not Reportable O2 Liters/Min Not Reportable FiO2 21 <Lulu Pitts PA-C - Last Filed: 09/09/24 17:04> 09/09/24 17:23 Puncture Site Right radial ABG pH 7.437 ABG pCO2 36.6 ABG pO2 64.0 L ABG PO2/FiO2 Ratio 3.05 ABG HCO3 24.1 ABG O2 Saturation 93.2 L ABG O2 Content 20.0 ABG Base Excess 0.3 A-a Gradient 41.9 Oxyhemoglobin 91.9 Total Hemoglobin 15.5 O2 Delivery Device Not Reportable O2 Liters/Min Not Reportable FiO2 21 <Madi Perez MD - Last Filed: 09/09/24 19:01> Interpretation: ITS Impressions Chest X-Ray 09/09/24 17:53 IMPRESSION: Significant peribronchial thickening, without focal infiltrate or effusion. <Madi Perez MD - Last Filed: 09/09/24 19:01> Imaging Data Radiologist's impression: ITS Impressions Chest X-Ray 09/09/24 17:53 IMPRESSION: Significant peribronchial thickening, without focal infiltrate or effusion. <Madi Perez MD - Last Filed: 09/09/24 19:01> ECG Data EKG #1: ECG completion date: 09/09/24 <Madi Perez MD - Last Filed: 09/09/24 19:01> ECG completion time: 18:41 <Madi Perez MD - Last Filed: 09/09/24 19:01> EKG Interpretation: tachycardia (121), non-specific ST changes and no ST changes <Madi Perez MD - Last Filed: 09/09/24 19:01> Discharge Plan Discharge Clinical Impression: Acute bronchitis with asthma <Lulu Pitts PA-C - Last Filed: 09/09/24 17:04> Patient Disposition: Home, Self-Care <Lulu Pitts PA-C - Last Filed: 09/09/24 17:04> Condition: Stable <Lulu Pitts PA-C - Last Filed: 09/09/24 17:04> Instructions: Antibiotic Form, Asthma (ED) <SHABBIR Giles Last Filed: 09/09/24 17:04> Patient Language: Burundian <Lulu Pitts PA-C - Last Filed: 09/09/24 17:04> Prescriptions: New prednisone 20 mg tablet 20 mg PO BID Qty: 10 0RF benzonatate 200 mg capsule 200 mg PO TID PRN (Reason: cough) Qty: 30 0RF No Action fluconazole 200 mg tablet levofloxacin 750 mg tablet albuterol sulfate 90 mcg/actuation HFA aerosol inhaler INHALATION kyeylxcprvndqcr-hahlbvekm-CA 2-30-10 mg/5 mL syrup naproxen 500 mg tablet Tezspire 210 mg/1.91 mL (110 mg/mL) pen injector SUBCUT prednisone 20 mg tablet 40 mg PO DAILY 4 Days Qty: 8 0RF <SHABBIR Giles Last Filed: 09/09/24 17:04> Follow-up/Referrals: PHYSICIAN NOT ON STAFF,NONSTAFF [Primary Care Provider] - Kavin Marie MD [Physician] - <SHABBIR Giles Last Filed: 09/09/24 17:04> Time of Disposition: 19:01 <Lulu Pitts PA-C - Last Filed: 09/09/24 17:04> 19:01 <Madi Perez MD - Last Filed: 09/09/24 19:01>
[2024-09-09] MEDS: methylPREDNISolone SOD SUCC 125 MG VIAL IV PUSH (17:28)
[2024-09-09] MEDS: IPRATROPIUM 0.5 MG/ALBUTEROL SULFATE 2.5 MG AMPUL.NEB 3 ML INHALATION ×4 (17:28→20:28)
[2024-09-09 17:38] LABS: Alveolar/Arterial O2 Gradient 41.9 mmHg; Base Excess ABG 0.3 mEq/l (+/-2.0); Fractional Inspired Oxygen 21 %; HCO3 ABG 24.1 mEq/l (22.0-26.0); Oxygen Saturation ABG 93.2 % (95.0-100.0); Oxyhemoglobin 91.9 % THb (90.0-100.0); PCO2 ABG 36.6 mmHg (35.0-45.0); PO2 FiO2 Ratio Arterial Blood 3.05 %; Total Hemoglobin 15.5 g/dL (12.0-18.0); pH ABG 7.437 (7.350-7.450)
[2024-09-09 17:39] LABS: Modified Allen's Test Pass; Site Drawn RIGHT RADIAL
--- OUTSIDE RECORDS SUMMARY | 2024-09-09 17:50 | XMS_ITS | Encounter Summary ---
Author Organization [facility] Address [address] [facility] [place] [address] Care Team Providers Care [employer] Teacher Name Role Phone Yobani Daniel MD Primary Care Provider [phone] Reason for Visit * Reason Onset Date Comments Advice Only 11/17/2023 pt would like a call states he sneezed and stiches came out. Wants to know if that was normal. pls call TY Encounter Details Date Type Department Care Team (Late st Contact Info) Description 11/17/2023 Telephone [facility] [id number] [place] [place] [phone] [place] [phone] [address] Social History Tobacco Use Types [...] on file Legal Sex Male 12:14 PM [employer] Gender Identity Not on file Sexual Orientation [...] on filedocumented in this encounter Care Teams [employer] Teacher Relationship Specialty Start Date End Date Yobani Daniel MD [address] [place] [address] PCP - General 08/19/23 documented as of this encounter
--- OUTSIDE RECORDS SUMMARY | 2024-09-09 17:50 | XMS_ITS | Encounter Summary ---
Author Organization [facility] Address [address] [facility] [place] [address] Care Team Providers Care Trouble Locater Name Role Phone Jovanni Pearson MD Primary Care Provider [phone] Niko Barone MD Primary Care Provider [phone] Reason for Visit * Reason Comments Med Change Request Encounter Details Date Type Department Care Team (Late st Contact Info) Description 03/24/2024 [facility] Physicians at [place] [address] [place] [address] [place] [address] [place] [address] Nontraumatic incomplete tear of left [...] or pharmacy? Patient declines to respond 03/22/2024 [facility] Utilities Answer Date Recorded In the past 12 months has e [employer], gas, oil, or water company threatened to [...] week 03/22/2024 How often do you attend episcopal or yarsanism serv ices? Patient declined 03/22/2024 Do you belong to any clubs o r organizations such as episcopal groups, unions, fraternal or athletic groups, or [...] Recorded Patient Health Questionnaire-2 Score 1 03/22/2024 [facility] - Occupational Stress Questionnaire Answer [...] any time in the past 12 m [facility], were you homeless or living in a snf (including now)? Patient declined 03/22/2024 Sex and [...] cuff documented in this encounter Care Teams Trouble Locater Relationship Specialty [place] [address] [place] [address] PCP - General 12/21/23 04/28/24 [place] [address] [place] [address] PCP - General Family Medicine 04/29/24 documented as of this encounter
--- OUTSIDE RECORDS SUMMARY | 2024-09-09 17:50 | XMS_ITS | Clinical Summary ---
Author Organization [facility] Address [address] [place] [address] Care Team Providers Care Director Of Services Name Role Phone Jose M Carr DO Primary Care Provider [phone] Allergies No known active allergies Medications losartan-hydroC [...] MCG/ACT nasal spray 3 Active HYDROcodone-bridger taminophen ([place]) 5-325 MG tablet Take 1 tablet by [...] each 4 11/05/19 25 Active HYDROcodone-bridger taminophen ([place]) 10-325 MG tablet TAKE 1 TABLET BY [...] Dr Yobani Cuba, Orthopedic surgeon, [place], [place] Physicians Take acetaminophen (Tylenol) every 4-6 hours [...] Sex Assigned at Male 04/25/2024 8:01 AM ORDER MAKE UP CLERK Legal Sex Male 9:15 AM ORDER MAKE UP CLERK Gender Identity Male 04/25/2024 8:01 AM ORDER MAKE UP CLERK Sexual Orientation Not on file Last Filed Vital Signs Vital Sign Reading Time Taken Comments Blood Pressure 128/87 05/23/2024 10:18 AM ORDER MAKE UP CLERK Pulse 86 05/23/2024 10:18 AM ORDER MAKE UP CLERK Temperature 36.4 C (97.5 F) 05/23/2024 10:18 AM ORDER MAKE UP CLERK Respiratory Rate - - Oxygen Saturation 100% 03/28/2024 1:37 PM CDT Inhaled Oxygen Concentration - - Weight 134 kg (295 lb 6.4 oz) 05/23/2024 10:18 A M ORDER MAKE UP CLERK Height 170.2 cm (5' 7 ) 03/28/2024 [...] patient's age to complete this topic Insurance hike EXCHANGE Care Teams Director Of Services Relationship Specialty [place] [address] [place] [address] PCP - General 11/04/23
--- OUTSIDE RECORDS SUMMARY | 2024-09-09 17:50 | XMS_ITS | Encounter Summary ---
Author Organization [facility] Address [address] [place] [address] Care Team Providers Care Skidway Worker Name Role Phone Jovanni Knapp MD Primary Care Provider Jose M Carr DO Primary Care Provider + Jovanni Pearson MD Primary Care Provider [phone] Niko Barone MD Primary Care Provider Encounter Details Date Type Department Care Team (Late st Contact Info) Description 10/29/2022 Legacy Scanned Document Encounter [facility] - Conversion [address] [place] [address] Social History Tobacco Use Types [...] on filedocumented in this encounter Care Teams Skidway Worker Relationship Specialty Start [place] [address] [facility] [address] [place] [address] PCP - General 07/18/22 11/25/23 [place] [address] [place] [address] PCP - General 11/26/23 12/20/23 [place] [address] [place] [address] PCP - General 12/21/23 04/28/24 [place] [address] [place] [address] PCP - General Family Medicine 04/29/24 documented as of this encounter
--- OUTSIDE RECORDS SUMMARY | 2024-09-09 17:50 | XMS_ITS | Encounter Summary ---
Author Organization [facility] Address [address] [place] [address] Care Team Providers Care Wire Mesh Filter Fabricator Name Role Phone Jovanni Pearson MD Primary Care Provider [phone] Niko Barone MD Primary Care Provider [phone] Reason for Visit * Reason Onset Date [...] (Late st Contact Info) Description 03/17/2024 Refill [facility] Physicians at [place] [id number] [place] [address] [place] [address] [place] [address] Social History Tobacco Use Types [...] on filedocumented in this encounter Care Teams Wire Mesh Filter Fabricator Relationship Specialty [place] [address] [place] [address] PCP - General 12/21/23 04/28/24 [place] [address] [place] [address] PCP - General Family Medicine 04/29/24 documented as of this encounter
--- OUTSIDE RECORDS SUMMARY | 2024-09-09 17:50 | XMS_ITS | Clinical Summary ---
Author Organization [facility] Address [address] [facility] [address] Care Team Providers Care Machine Tender Name Role Phone Niko Barone MD Primary Care Provider [phone] Allergies No known active allergies Medications EPINEPHrine [...] Type Department Care Team Description 08/05/2024 Telephone [facility] Physicians at [address] [phone] Niko Barone MD 07/30/2024 Refill [facility] Physicians at [address] [phone] Niko Barone MD Primary hypertension 06/27/2024 Refill [facility] Physicians at [address] [phone] Niko Barone MD Primary hypertension from Last [...] or pharmacy? Patient declines to respond 03/22/2024 [facility] Utilities Answer Date Recorded In the past 12 months has e [employer], gas, oil, or water [employer] threatened to shut off services in your home? Patient declined 03/22/2024 Social Connection and Isolation Panel [NHANES] A nswer Date Recorded In a typical week, how many times do you talk on the phone with family, friends, or neighbors? Twice a week 03/22/2024 How often do you get togethe r with friends or relatives? Twice a week 03/22/2024 How often do you attend amish or orthodoxy serv ices? Patient declined 03/22/2024 Do you belong to any clubs o r organizations such as amish groups, unions, fraternal or athletic groups, or [...] Recorded Patient Health Questionnaire-2 Score 1 03/22/2024 [facility] - Occupational [...] any time in the past 12 m [facility], were you homeless or living in a prison (including now)? Patient declined 03/22/2024 Sex and [...] with LDL/HDL ratio (12/10/2022 12:26 PM CDT) [facility] Triglycerides 89 <150 mg/dL [facility] RESULT CONVERSION Comment: Lab test performed by: [facility] [address] [place] [phone] Ricci Shin LDL (Calculated) 158(H) mg/dL [facility] [...] LDL-C. Kofi MURPHY et al. DEMETRIO. 2013;310(19): 4677-9977 (http://education.[employer]/faq/FOJ994) Lab test performed by: [facility] [address] [place] [address] Ricci Shin Cholesterol 221(H) <200 mg/dL [facility] RESULT CONVERSION Comment: Lab test performed by: [facility] [address] [place] [phone] Ricci Latifge Chol/HDL Ratio 5.0(H) <5.0 (CALC) [facility] RESULT CONVERSION Comment: Lab test performed by: [facility] [address] [place] [address] Ricci Garciaridge HDL 44 > OR = 40 mg/dL [facility] RESULT CONVERSION Comment: Lab test performed by: [facility] [address] [place] [address] Ricci Garciaridge Non HDL Chol 177(H) <130 mg/dL [facility] RESULT CONVERSION Comment: For patients with diabetes plus 1 major ASCVD risk factor, treating to a non-HDL-C goal of <100 mg/dL (LDL-C of <70 mg/dL) is considered a therapeutic option. FASTING:YES FASTING: YES Lab test performed by: [facility] [address] [place] [address] Ricci Garciaridge Blood 12/10/2022 12:2 6 PM CDT Jose M Carr DO LAB BLOOD ORDERABLES Fin al Result [facility] RESULT CONVERSION from Last 3 Months or Most Recently Relevant to Health Maintenance Insurance [facility] Care Teams Machine Tender Relationship Specialty [place] [address] [place] [address] PCP - General Family Medicine 04/29/24
--- OUTSIDE RECORDS SUMMARY | 2024-09-09 17:50 | XMS_ITS | Referral Summary ---
Author Organization [facility] Address [address] [place] [address] Care Team Providers Care Mill Operator Helper Name Role Phone Jose M Carr DO Primary Care Provider [phone] Allergies No known active allergies Medications losartan-hydroC [...] MCG/ACT nasal spray 3 Active HYDROcodone-bridger taminophen ([place]) 5-325 MG tablet Take 1 tablet by [...] each 4 11/05/19 25 Active HYDROcodone-bridger taminophen ([place]) 10-325 MG tablet TAKE 1 TABLET BY [...] Dr Yobani Cuba, Orthopedic surgeon, [place], [place] Physicians Take acetaminophen (Tylenol) every 4-6 hours [...] Sex Assigned at Male 04/25/2024 8:01 AM PAYER SPECIALIST Legal Sex Male 9:15 AM PAYER SPECIALIST Gender Identity Male 04/25/2024 8:01 AM PAYER SPECIALIST Sexual Orientation Not on file Last Filed Vital Signs Vital Sign Reading Time Taken Comments Blood Pressure 128/87 05/23/2024 10:18 AM PAYER SPECIALIST Pulse 86 05/23/2024 10:18 AM PAYER SPECIALIST Temperature 36.4 C (97.5 F) 05/23/2024 10:18 AM PAYER SPECIALIST Respiratory Rate - - Oxygen Saturation 100% 03/28/2024 1:37 PM CDT Inhaled Oxygen Concentration - - Weight 134 kg (295 lb 6.4 oz) 05/23/2024 10:18 A M PAYER SPECIALIST Height 170.2 cm (5' 7 ) 03/28/2024 1:37 PM CDT Body Mass Index 46.27 03/28/2024 1:37 PM CDT Plan of Treatment Not on file Insurance [employer] EXCHANGE Care Teams Mill Operator Helper Relationship Specialty [place] [address] [place] [address] PCP - General 11/04/23
--- OUTSIDE RECORDS SUMMARY | 2024-09-09 17:50 | XMS_ITS | Clinical Summary ---
Author Organization [facility] Address [address] [place] [address] Care Team Providers Care Diamond Selector Name Role Phone Unavailable Primary Care Provider [...]
--- OUTSIDE RECORDS SUMMARY | 2024-09-09 17:50 | XMS_ITS | Encounter Summary ---
Author Organization [facility] Address [address] [facility] [place] [address] Care Team Providers Care Surgeon Assistant Name Role Phone Jovanni Pearson MD Primary Care Provider [phone] Niko Barone MD Primary Care Provider [phone] Reason for Visit * Reason Comments Med Change Request Encounter Details Date Type Department Care Team (Late st Contact Info) Description 03/28/2024 [facility] Physicians at [place] [address] [place] [address] [place] [address] [place] [address] Nontraumatic incomplete tear of left [...] or pharmacy? Patient declines to respond 03/22/2024 [facility] Utilities Answer Date Recorded In the past 12 months has th e [employer], gas, oil, or water company threatened to [...] week 03/22/2024 How often do you attend baptism or zoroastrianism serv ices? Patient declined 03/22/2024 Do you belong to any clubs o r organizations such as baptism groups, unions, fraternal or athletic groups, or [...] Recorded Patient Health Questionnaire-2 Score 1 03/22/2024 [facility] - Occupational Stress Questionnaire Answer Date [...] any time in the past 12 m [facility], were you homeless or living in a m[facility] (including now)? Patient declined 03/22/2024 Sex and [...] cuff documented in this encounter Care Teams Surgeon Assistant Relationship Specialty [place] [address] [place] [address] PCP - General 12/21/23 04/28/24 [place] [address] [place] [address] PCP - General Family Medicine 04/29/24 documented as of this encounter
--- OUTSIDE RECORDS SUMMARY | 2024-09-09 17:50 | XMS_ITS | Clinical Summary ---
Author Organization [facility] Address [address] [place] [address] Care Team Providers Care Linter Drier Operator Name Role Phone Yobani Daniel MD Primary Care Provider [phone] Allergies No known active allergies Medications budesonide-form [...] your living situation today? [facility] 10/20/2023 Think about [...] on file Legal Sex Male 12:14 PM MAINTENANCE TECHNICIAN 3RD SHIFT Gender Identity Not on file Sexual Orientation Not on file Last Filed Vital Signs Vital Sign Reading Time Taken Comments Blood Pressure 136/89 04/25/2024 1:32 PM MAINTENANCE TECHNICIAN 3RD SHIFT Pulse 72 04/25/2024 1:32 PM MAINTENANCE TECHNICIAN 3RD SHIFT Temperature 36.4 C (97.5 F) 10/21/2023 3:49 PM CDT Respiratory Rate 22 10/21/2023 4:59 PM CDT Oxygen Saturation 94% 10/21/2023 3:49 PM CDT Inhaled Oxygen Concentration - - Weight 130 kg (286 lb) 04/25/2024 1:32 PM MAINTENANCE TECHNICIAN 3RD SHIFT Height 170.2 cm (5' 7 ) 04/25/2024 1:32 PM MAINTENANCE TECHNICIAN 3RD SHIFT Body Mass Index 44.79 04/25/2024 1:32 PM MAINTENANCE TECHNICIAN 3RD SHIFT Plan of Treatment Health Maintenance Due Date [...] this topic Medical Devices Implanted Type Area Group Marketing Vp Device Identifier Shelf Expiration Date Model / Serial / Lot Implant Sinus Propel Mini 16x43.5x4.0mm Mometasone Furoate - [id number] Implanted:Qty : 1 on 10/20/2023 by Lima Cardoza MD at [facility] Implants or Sets Left: Nose INTERSECT ENT 01/22/2024 [id number] / / [id number] Implant Sinus Propel Mini 16x43.5x4.0mm Mometasone Furoate - [id number] Implanted:Qty : 1 on 10/20/2023 by Lima Cardoza MD at [facility] Otolaryngology Implants or Sets Right: Nose INTERSECT ENT 01/22/2024 [id number] / / [id number] Implant Sinus Propel Contour 8x15.5x2.8mm Mometasone Furoate - [id number] Implanted:Qty : 1 on 10/20/2023 by Lima Cardoza MD at [facility] Surgical Implants; Expanders; Extenders; Surgical Wires Left: Nose INTERSECT ENT 10/09/2024 [id number] / / [id number] Implant Sinus Propel Contour 8x15.5x2.8mm Mometasone Furoate - [id number] Implanted:Qty : 1 on 10/20/2023 by Lima Cardoza MD at [facility] Surgical Implants; Expanders; Extenders; Surgical Wires Right: Nose INTERSECT ENT 09/18/2024 [id number] / / [id number] Insurance [facility] EXCHANGE LIMITED NETWORK - OON Advance Directives For more information, please contact: [phone] * Full Code (Latest Code Status on File) Date Activated Date Inactivated Comments 10/20/2023 12:37 PM 10/21/2023 10:09 PM Question Answer Comments Code Status decision reached by: Patient Care Teams Linter Drier Operator Relationship Specialty Start Date End Date Yobani Daniel MD [address] [place] [address] PCP - General 08/19/23
--- OUTSIDE RECORDS SUMMARY | 2024-09-09 17:50 | XMS_ITS | Encounter Summary ---
Author Organization [facility] Address [address] [facility] [place] [address] Care Team Providers Care Landing Signal Officer Name Role Phone Jovanni Knapp MD Primary Care Provider Jose M Carr DO Primary Care Provider + Jovanni Pearson MD Primary Care Provider Niko Barone MD Primary Care Provider [phone] Encounter Details Date Type Department Care Team (Late st Contact Info) Description 10/29/2022 Legacy Scanned Document Encounter [facility] - Conversion [address] [place] [address] Social History Tobacco Use Types [...] on filedocumented in this encounter Care Teams Landing Signal Officer Relationship Specialty Start [place] [address] [facility] [address] [place] [address] PCP - General 07/18/22 11/25/23 [place] [address] [place] [address] PCP - General 11/26/23 12/20/23 [place] [address] [place] [address] PCP - General 12/21/23 04/28/24 [place] [address] [place] [address] PCP - General Family Medicine 04/29/24 documented as of this encounter
[2024-09-09 18:32] VITALS: PULSE 88; RESP 20
[2024-09-09 18:35] LABS: Basophils Percent Auto 0.3 % (0.2-1.2); Hematocrit 45.1 % (42.0-52.0); Hemoglobin 14.8 g/dL (14.0-18.0); Immature Granulocyte Absolute 0.26 K/mm3 (0.00-0.031); Immature Granulocyte Percent A 2.2 % (0-0.5); Lymphocytes Absolute Auto 1.71 K/mm3 (0.9-3.2); Lymphocytes Percent Auto 14.6 % (18.3-44.2); Mean Corpuscular HGB Conc 32.8 g/dl (32-36); Mean Corpuscular Hemoglobin 27.1 pg (26-34); Mean Corpuscular Volume 82.6 fl (80-100); Mean Platelet Volume 8.1 fl (7.4-10.4); Monocytes Absolute Auto 0.6 K/mm3 (0.1-0.6); Neutrophils Absolute Auto 9.1 K/mm3 (1.3-6.7); Neutrophils Percent Auto 77.9 % (45.5-73.1); Nucleated Red Blood Cells Perc 0.2 % (0.0-0.2); Platelet Count Result 454 k/mm3 (150-375); Red Blood Count 5.46 M/mm3 (4.6-6.20); Red Cell Distribution Width 14.6 % (11.5-14.5); White Blood Count 11.7 K/mm3 (4.5-10.0)
[2024-09-09 18:46] LABS: Alanine Aminotransferase 45 U/L (6-50); Albumin Level 4.7 g/dL (3.5-5.1); Alkaline Phosphatase 57 U/L (38-126); Anion Gap 13 mmol/L (4-12); Aspartate Amino Transferase 39 U/L (17-59); Bilirubin,Total 0.5 mg/dL (0.2-1.3); Blood Urea Nitrogen 18 mg/dL (9-20); Calcium 9.9 mg/dL (8.4-10.2); Carbon Dioxide 24 mmol/L (22-30); Chloride 103 mmol/L (98-107); Estimated Glomerular Filt Rate 59; Glucose 144 mg/dL (65-110); Potassium 4.2 mmol/L (3.4-5.0); Sodium 140 mmol/L (137-145)
[2024-09-09 18:48] LABS: Prothrombin Time 13.7 Seconds (11.1-14.7)
[2024-09-09 18:49] LABS: Partial Thromboplastin Time 25.3 Seconds (22.3-36.8)
[2024-09-09 18:58] VITALS: O2SAT 98
[2024-09-09 18:58] LABS: Troponin I < 0.012 ng/mL (0.000-0.034)
[2024-09-09] MEDS: predniSONE 20 MG TABLET 60 MG PO (19:07)
[2024-09-09 19:10] LABS: NT Pro B Type Natriuretic Pept < 20 pg/mL (19.9-100)
[2024-09-09 20:11] VITALS: BP 132/77; PULSE 115; RESP 24; O2SAT 95
[2024-09-09 20:31] VITALS: PULSE 115; RESP 22
[2024-09-09 21:10] VITALS: BP 122/74; PULSE 129; RESP 22; O2SAT 97
--- NOTE | 2024-09-09 21:28 | ECG_ITS ---
Test Date: 2024-09-09 21:34:44 Measurements Intervals [place] Rate: 113 P: 30 UT: 116 QRS: 49 QRSD: 96 T: 17 QT: 352 QTc: 483 Interpretive Statements SINUS TACHYCARDIA NONSPECIFIC T-WAVE ABNORMALITY Compared to ECG 09/09/2024 18:41:28 NO SIGNIFICANT CHANGES Electronically Signed On 09-10-2024 17:32:09 CDT by Saran Barnett M.D.
[2024-09-09 21:54] LABS: Troponin I < 0.012 ng/mL (0.000-0.034)
[2024-09-09] MEDS: BENZONATATE 100 MG CAPSULE 200 MG PO (22:17)
[2024-09-09] MEDS: Acetaminophen/HYDROcodone ELIXIR (*CRX) 7.5 MG/15 ML UDC PO (22:17)
--- NOTE | 2024-09-10 00:10 | PC.NURSE ---
upon discharge pt stated he needed a covid swab for work. Pt was swabbed and sent down at 22:24. Covid swab is still not resulted, called lab and they state it errored and needs to be ran again.
[2024-09-10 00:40] VITALS: BP 118/68; PULSE 92; RESP 18; O2SAT 95
[2024-09-10 00:46] LABS: Influenza A QL RT-PCR Negative (Negative); Influenza B QL RT-PCR Negative (Negative); RSV RNA, RT-PCR Negative (Negative); SARS-CoV-2 RNA PCR Positive (Negative)
== END 2024-09-10 01:15 | disposition home or self-care (01) ==
PROVIDERS: Emergency Medicine; Physician Assistant; Emergency Provider Family Medicine
DX: J20.9 Acute bronchitis, unspecified (principal); J45.909 Unspecified asthma, uncomplicated; Z20.822 Contact with and (suspected) exposure to COVID-19; I10 Essential (primary) hypertension; Z87.891 Personal history of nicotine dependence; R00.0 Tachycardia, unspecified; R94.31 Abnormal electrocardiogram [ECG] [EKG]
CPT/HCPCS: 36415; 36600; 71045; 71275; 80053; 82805; 83735; 83880; 84484; 85018; 85025; 85610; 85730; 87637; 93005; 94640; 96374; 99284; A9270; J2919; J7512; Q9967